=== PATIENT | male | born 1940 | race Caucasian/White ===

== ENCOUNTER 2017-03-03 10:45 | Emergency (ER) | payer OTHER ==
[~2017-03-03] VITALS: Ht 180.3 cm; Wt 90.5 kg
[~2017-03-03 10:45] MED LIST: CLR10 PO; OMEG10007 PO; PSEU30TA20 PO
[2017-03-03 10:48] VITALS: TEMP 36.5; Ht 180.3 cm; Wt 90.5 kg
[2017-03-03] MEDS ORDERED: RABIES IMMUNE GLOBULIN (HUMAN) 150 INTER.UNIT/ML 2 ML VIAL IM. ONE (11:30)
[2017-03-03] MEDS ORDERED: RABIES VACCINE (IMOVAX) HUMAN DIPL CELL 2.5 INTER.UNIT/ML SYR IM. ONE (11:30)
[2017-03-03 11:52] VITALS: BP 127/90; PULSE 79; O2SAT 97
--- NOTE | 2017-03-03 20:08 | EMERGENCY ROOM VISIT NOTE ---
History First contact with patient: 11:06 Chief Complaint: BITE Stated Complaint: NEED SHOT FOR RABIES History of Present Illness The patient is a 77 year old male who presents to the Emergency Room with complaints of a feral cat bite to his right index finger. The patient reports that he has been trying to "become friendly" with a cat. When he tried to pick it up Thursday to put it into a cage, it bit him. He has not seen the cat since the bite. The patient was seen at an urgent care center, and provided a prescription for Augmentin. He was instructed to come to the emergency department for the rabies immunization series. The patient denies any paresthesias or numbness of the finger, and has not noticed any developing redness. Review of Systems 10 system review was performed and was negative except for pertinent positives and negatives as indicated in history of present illness Past Medical/Surgical History Medical Problems: (1) Abdominal hernia (2) Esophageal Reflux (3) Hypertension Nos (4) Int Hemorrhoid W/O Compl (5) Pure Hypercholesterolem Surgical Problems: (1) History of bowel resection Family History No pertinent family history Social History Smoking Status: Never Smoker Marital Status: Housing Status: lives with significant other Occupation Status: retired Current/Historical Medications Scheduled Amlodipine (Norvasc), 5 MG PO QAM Cholecalciferol (Vitamin D3), 1 TAB PO QAM Citalopram Hydrobromide (Citalopram Hydrobromide), 1 TAB PO QAM Cyanocobalamin (Vitamin B12), 1 TAB PO QAM Gjmjkuyupki-Eakhuohfxgv-Uwo C- (Glucosamine Chondroitin), 2 CAP PO QAM Ibuprofen Tab (Advil), 4 TAB PO HS Losartan Potassium (Cozaar), 50 MG PO QAM Omeprazole (Omeprazole), 20 MG PO QAM Physical Exam Vital Signs Date Time Temp Pulse Resp B/P (MAP) Pulse Ox O2 Delivery O2 Flow Rate FiO2 03/03/17 11:52 79 16 127/90 97 Room Air 03/03/17 10:48 36.5 85 18 132/88 96 Room Air Pain Rating (0-10): 0 Physical Exam CONSTITUTIONAL: Healthy and well nourished. Alert and oriented X 3 with positive affect. HEENT: Normocephalic, atraumatic. Pupils equal, round and reactive. NECK: Full active range of motion without discomfort. MUSCULOSKELETAL: Examination of the right index finger shows several bite jaramillo to the dorsal middle phalanx region. The patient is able to flex and extend the finger without discomfort. No erythema, induration or drainage noted. No proximal lymphangitic streaking. Capillary refill is less than 2 seconds. INTEGUMENTARY: No rash or other significant dermatologic conditions noted. NEUROLOGIC: Right index finger is sensory intact. Medical Decision & Procedures Medications Administered Medications (Trade) Dose Ordered Sig/Reza Route Start Time Stop Time Status Last Admin Dose Admin Rabies Vaccine Human Diploid Cell (Imovax Rabies) 2.5 interunit ONCE ONCE IM. 03/03/17 11:30 03/03/17 11:31 DC 03/03/17 11:47 2.5 INTERUNIT Rabies Immune Globulin (Imogam Rabies Inj) 1,800 interunit ONCE ONCE IM. 03/03/17 11:30 03/03/17 11:31 DC 03/03/17 11:48 1,800 INTERUNIT ED Course Patient history and physical exam were performed. Nurse's notes were reviewed. Vital signs were reviewed and normal. The patient was administered Imovax and HRIG 20 units per kilogram without any adverse reaction. The patient will continue with his Augmentin antibiotics, and will return to the emergency department on days 3, 7 and 14 for his subsequent Imovax immunizations. Was instructed to return sooner with any further wound concerns. The patient was happy with plan of care, and denied any pain at the time of discharge. Medical Decision Medication Reconcilliation Current Medication List: was personally reviewed by me Blood Pressure Screening Patient's blood pressure: Normal blood pressure Impression Primary Impression: Cat bite of index finger Additional Impression: Rabies, need for prophylactic vaccination against Departure Information Dispostion Home / Self-Care Condition GOOD Forms HOME CARE DOCUMENTATION FORM, IMPORTANT VISIT INFORMATION Patient Instructions [facility] Additional Instructions Return on the following dates for your immunizations: 03/06 Problem Qualifiers Primary Impression: Cat bite of index finger Encounter type: initial encounter Qualified Codes: S61.258A - Open bite of other finger without damage to nail, initial encounter; W55.01XA - Bitten by cat , initial encounter
[2017-03-17] MEDS ORDERED: CITA10TA4 PO (09:37)
[2017-03-17] MEDS ORDERED: CYAN100020 PO (09:37)
[2017-03-17] MEDS ORDERED: LOSA50TA6 PO (09:37)
[2017-03-17] MEDS ORDERED: IBUP-103 PO (09:37)
[2017-03-17] MEDS ORDERED: AMLO-110 PO (09:37)
[2017-03-17] MEDS ORDERED: CHOL1000 PO (09:37)
[2017-03-17] MEDS ORDERED: GLUC1CAP35 PO (09:37)
== END 2017-03-03 12:33 | disposition home or self-care (01) ==
LOC: C.EDB 10:46 → C.EDD 12:33
DX: S60.478A Other superficial bite of other finger, initial encounter (principal); W55.01XA Bitten by cat, initial encounter; K21.9 Gastro-esophageal reflux disease without esophagitis; I10 Essential (primary) hypertension; E78.00 Pure hypercholesterolemia, unspecified; Z20.3 Contact with and (suspected) exposure to rabies; Z23 Encounter for immunization

== ENCOUNTER 2017-03-06 10:01 | Emergency (ER) | payer OTHER ==
[~2017-03-06] VITALS: Ht 180.3 cm; Wt 90.6 kg
[2017-03-06 10:06] VITALS: Ht 180.3 cm; Wt 90.6 kg
[2017-03-06] MEDS ORDERED: AMPICILLIN/SULBACTAM SOD INJ 3,000 MG in SODIUM CHLORIDE 0.9% 100ML 100 ML IV ONE (10:30)
[2017-03-06] MEDS ORDERED: RABIES VACCINE (IMOVAX) HUMAN DIPL CELL 2.5 INTER.UNIT/ML SYR IM. ONE (10:30)
[2017-03-06 10:55] LABS: BASO % 0.4 %; BASO ABS # 0.03 K/uL (0-0.2); COMPLETE YES; EOS % 3.1 %; HEMATOCRIT 38.5 % (42-52); IG% 0.1 %; LYMPH % 26.8 %; MEAN CORPUSCULAR HEMOGLOBIN 31.6 pg (25-34); MEAN PLATELET VOLUME 9.4 fL (7.4-10.4); MONO % 9.7 %; NEUT % 59.9 %; PLATELET COUNT 253 K/uL (130-400); RED BLOOD COUNT 4.14 M/uL (4.7-6.1); WHITE BLOOD COUNT 7.85 K/uL (4.8-10.8)
--- NOTE | 2017-03-06 11:16 | DIAGNOSTIC IMAGING REPORT ---
RIGHT FINGER(S) MIN 2 VIEWS ROUTINE CLINICAL HISTORY: RIGHT 2ND FINGER, CAT BITE, INFECTION Right pain. Edema. Abnormal bite. COMPARISON: None. DISCUSSION: Moderate degenerative change of the interphalangeal joints. Generalized soft tissue edema. No abnormal periosteal reaction. No cortical defects. No bony destructive process. IMPRESSION: Considerable soft tissue edema. No acute bony abnormality. The above report was generated using voice recognition software. It may contain grammatical, syntax or spelling errors. Electronically signed by: Santiago Martínez M.D. 03/06/2017 11:14 AM Dictated Date/Time: 03/06/2017 11:13 AM
[2017-03-06 11:21] LABS: BUN/CREATININE RATIO 12.7 (10-20); C-REACTIVE PROTEIN 0.95 mg/dl (0-0.29); CREATININE 1.1 mg/dl (0.60-1.40); POTASSIUM 4.3 mmol/L (3.5-5.1)
[2017-03-06] MEDS ORDERED: AMOX875T PO (11:21)
--- NOTE | 2017-03-06 12:37 | EMERGENCY ROOM VISIT NOTE ---
ED Visit Note First contact with patient: 10:10 CHIEF COMPLAINT: Infected cat bite of the right second finger, repeat rabies visit HISTORY OF PRESENT ILLNESS: Patient is a [id number] 77-year-old white male who presents to emergency department for evaluation of a Bite to the right second finger, and for a follow-up rabies visit. The patient was bitten by a feral cat one week ago. He sustained multiple bites to the right second finger. He was seen at an urgent care center on Friday 03/02 and started on Augmentin. He was seen here in the emergency Department 03/03 for initiation of post exposure rabies prophylaxis. Patient has been on antibiotics for 4 days, reports that his finger is worsening. He primarily complains of pain over the middle phalanx where the deepest bite was sustained. The finger is still swollen and throbs. He has pain when he tries to flex the finger. He has not had any fevers. He denies any drainage or discharge from the area. He tolerated the rabies vaccinations from Thursday without any difficulty. He rates his discomfort a 01/03. REVIEW OF SYSTEMS: Review of systems as per HPI. All other systems reviewed were negative. 10 systems reviewed. PMH: Electronic medical records are reviewed and summarized as above/below. See Problem List. Tetanus is current. SOCIAL HISTORY: Patient living at home with his . He is retired. PHYSICAL EXAM: Vital Signs: Reviewed Nurse's notes. CONSTITUTIONAL: Patient is a pleasant, well-appearing 77-year-old white male who is awake and alert and in no acute distress. Examination of the right hand show multiple small punctures and scratches on the right second finger, which are scabbed over. The finger is circumferentially swollen, tender to palpation over the proximal phalanx, primarily on the palmar aspect of the finger. He does not have any pain extending into the palm of the hand. He can extend fully, flexion is limited by discomfort and soft tissue swelling. There is no fluctuance or overt cellulitic changes. No abscess suspected. No lymphangitic streaking. EMERGENCY DEPARTMENT COURSE: The patient was seen and assessed as above. His primary Emergency Department record was reviewed. He has been on antibiotics for 4 days, does not feel like his symptoms are improving. IV lock was initiated and the patient was given Unasyn 3 g IV. CBC did not demonstrate a leukocytosis. Inflammatory markers are minimally elevated. Electrolytes are normal. X-rays noted soft tissue swelling without bony abnormality. He was given his scheduled dose of Imovax IM. The patient was reassessed. He has expected pain and swelling from a cat bite to the right second finger. He is on appropriate antibiotic coverage. They he has some residual pain and swelling, however does not have any physical exam findings to suspect flexor tenosynovitis. I do not suspect drainable abscess or osteomyelitis. He was encouraged to continue the antibiotics. He declined pain medication. He was encouraged to follow-up with his primary care provider next week for recheck, and to follow the previously outlined post exposure rabies prophylaxis course. The patient was discharged home in good condition. Medication reconciliation: I attest that I have personally reviewed the patient' s current medication list. Blood pressure screening : Patient was found to have normal blood pressure on screening and does not require follow-up. RIGHT FINGER(S) MIN 2 VIEWS ROUTINE CLINICAL HISTORY: RIGHT 2ND FINGER, CAT BITE, INFECTION Right pain. Edema. Abnormal bite. COMPARISON: None. DISCUSSION: Moderate degenerative change of the interphalangeal joints. Generalized soft tissue edema. No abnormal periosteal reaction. No cortical defects. No bony destructive process. IMPRESSION: Considerable soft tissue edema. No acute bony abnormality. Problem List Medical Problems: (1) Abdominal hernia Status: Chronic (2) Abdominal pain Status: Resolved (3) Cat bite of index finger Status: Resolved (4) Esophageal Reflux Status: Chronic (5) Hypertension Nos Status: Chronic (6) Int Hemorrhoid W/O Compl Status: Resolved (7) Pure Hypercholesterolem Status: Chronic (8) Rabies, need for prophylactic vaccination against Status: Resolved Surgical Problems: (1) History of bowel resection Status: Resolved (2) Hx of cholecystectomy Status: Resolved Current/Historical Medications Scheduled Amlodipine (Norvasc), 5 MG PO QAM Amoxicillin & Pot Clavulanate (Augmentin 875-125 mg), 1 TAB PO BID Atorvastatin (Lipitor), 5 MG PO QAM Cholecalciferol (Vitamin D3), 1 TAB PO QAM Citalopram Hydrobromide (Citalopram Hydrobromide), 5 MG PO QAM Cyanocobalamin (Vitamin B12), 1 TAB PO QAM Kimwgjobgoy-Prgrbrasvmz-Kxj C- (Glucosamine Chondroitin), 2 CAP PO QAM Ibuprofen Tab (Advil), 4 TAB PO HS Losartan Potassium (Cozaar), 50 MG PO QAM Omeprazole (Omeprazole), 20 MG PO QAM Allergies Coded Allergies: No Known Allergies (Unverified , 03/06/17) Vital Signs Date Time Temp Pulse Resp B/P (MAP) Pulse Ox O2 Delivery O2 Flow Rate FiO2 03/06/17 12:46 36.4 66 18 126/84 96 03/06/17 11:30 67 20 136/89 94 Room Air 03/06/17 10:06 36.4 83 16 127/88 96 Room Air Laboratory Results 03/06/17 10:45 Red Blood Count 4.14, Mean Corpuscular Volume 93.0, Mean Corpuscular Hemoglobin 31.6, Mean Corpuscular Hemoglobin Concent 34.0, Mean Platelet Volume 9.4, Neutrophils (%) (Auto) 59.9, Lymphocytes (%) (Auto) 26.8, Monocytes (%) (Auto) 9.7, Eosinophils (%) (Auto) 3.1, Basophils (%) (Auto) 0.4, Neutrophils # (Auto) 4.71, Lymphocytes # (Auto) 2.10, Monocytes # (Auto) 0.76, Eosinophils # (Auto) 0.24, Basophils # (Auto) 0.03 03/06/17 10:45 Test 03/06/17 10:45 White Blood Count 7.85 K/uL (4.8-10.8) Red Blood Count 4.14 M/uL (4.7-6.1) Hemoglobin 13.1 g/dL (14.0-18.0) Hematocrit 38.5 % (42-52) Mean Corpuscular Volume 93.0 fL (80-100) Mean Corpuscular Hemoglobin 31.6 pg (25-34) Mean Corpuscular Hemoglobin Concent 34.0 g/dl (32-36) Platelet Count 253 K/uL (130-400) Mean Platelet Volume 9.4 fL (7.4-10.4) Neutrophils (%) (Auto) 59.9 % Lymphocytes (%) (Auto) 26.8 % Monocytes (%) (Auto) 9.7 % Eosinophils (%) (Auto) 3.1 % Basophils (%) (Auto) 0.4 % Neutrophils # (Auto) 4.71 K/uL (1.4-6.5) Lymphocytes # (Auto) 2.10 K/uL (1.2-3.4) Monocytes # (Auto) 0.76 K/uL (0.11-0.59) Eosinophils # (Auto) 0.24 K/uL (0-0.5) Basophils # (Auto) 0.03 K/uL (0-0.2) RDW Standard Deviation 42.7 fL (36.4-46.3) RDW Coefficient of Variation 12.7 % (11.5-14.5) Immature Granulocyte % (Auto) 0.1 % Immature Granulocyte # (Auto) 0.01 K/uL (0.00-0.02) Erythrocyte Sedimentation Rate 39 mm/hr (0-14) Anion Gap 6.0 mmol/L (3-11) Est Creatinine Clear Calc Drug Dose 66.8 ml/min Estimated GFR () 75.7 Estimated GFR (Non- 65.3 BUN/Creatinine Ratio 12.7 (10-20) Calcium Level 9.0 mg/dl (8.5-10.1) C-Reactive Protein 0.95 mg/dl (0-0.29) Medications Administered Medications (Trade) Dose Ordered Sig/Reza Route Start Time Stop Time Status Last Admin Dose Admin Rabies Vaccine Human Diploid Cell (Imovax Rabies) 2.5 interunit ONCE ONCE IM. 03/06/17 10:30 03/06/17 10:31 DC 03/06/17 10:30 2.5 INTERUNIT Ampicillin Sodium/ Sulbactam Sodium 3000 mg/Sodium Chloride 108 ml @ 200 mls/hr ONE ONCE IV 03/06/17 10:30 03/06/17 11:02 DC 03/06/17 10:30 200 MLS/HR Departure Information Impression Primary Impression: Cat bite of index finger Referrals Milana Renee (PCP) Patient Instructions My [facility] Additional Instructions Continue Augmentin as prescribed. Ibuprofen(Motrin, Advil) may be used for fever or pain. Use 600mg every six hours as needed. Take with food. Avoid using more than 2400mg in a 24 hour period. Do not use 2400mg per day for more than three consecutive days without physician direction. Prolonged inappropriate use can lead to stomach upset or ulcers. (AND/OR) Acetaminophen(Tylenol) may be used for fever or pain. Use 1000mg every six hours as needed. Avoid using more than 3000mg in a 24 hour period. Return to the emergency department at any point for increasing pain, redness or swelling, fevers, red streaking traveling up the arm or any worsening symptoms. Follow-up with your primary care provider or with orthopedic hand surgery if your symptoms are not improved by Thursday. Problem Qualifiers Primary Impression: Cat bite of index finger Encounter type: subsequent encounter Qualified Codes: S61.258D - Open bite of other finger without damage to nail, subsequent encounter; W55.01XD - Bitten by cat, subsequent encounter
--- NOTE | 2017-03-06 12:43 | EMERGENCY ROOM VISIT NOTE ---
ED Visit Note First contact with patient: 10:10 77-year-old male was swelling with right index finger status post animal bite. The patient has been on antibiotics. The patient was fully evaluated by Daniela Rudd PA-C. Please see her note. I also independently evaluated the patient. The patient was given additional antibiotics here and will go home on prescription antibiotics.
[2017-03-06 12:46] VITALS: BP 126/84; PULSE 66; TEMP 36.4; O2SAT 96
[2017-03-17] MEDS ORDERED: IBUP-103 PO (09:37)
[2017-03-17] MEDS ORDERED: CITA10TA4 PO (09:37)
[2017-03-17] MEDS ORDERED: AMLO-110 PO (09:37)
[2017-03-17] MEDS ORDERED: GLUC1CAP35 PO (09:37)
[2017-03-17] MEDS ORDERED: CHOL1000 PO (09:37)
[2017-03-17] MEDS ORDERED: CYAN100020 PO (09:37)
[2017-03-17] MEDS ORDERED: LOSA50TA6 PO (09:37)
== END 2017-03-06 12:47 | disposition home or self-care (01) ==
LOC: C.EDB 10:06 → C.EDA 12:47
DX: Z23 Encounter for immunization (principal); Z20.3 Contact with and (suspected) exposure to rabies; W55.01XA Bitten by cat, initial encounter; I10 Essential (primary) hypertension; K21.9 Gastro-esophageal reflux disease without esophagitis; E78.00 Pure hypercholesterolemia, unspecified; Z90.49 Acquired absence of other specified parts of digestive tract

== ENCOUNTER 2017-03-10 12:14 | Emergency (ER) | payer OTHER ==
[~2017-03-10] VITALS: Ht 180.3 cm; Wt 90.8 kg
[~2017-03-10 12:14] MED LIST changes: +AMOX875T PO; -CLR10 PO; -OMEG10007 PO; -PSEU30TA20 PO
[2017-03-10 12:23] VITALS: TEMP 36.7; Ht 180.3 cm; Wt 90.8 kg
[2017-03-10] MEDS ORDERED: RABIES VACCINE (IMOVAX) HUMAN DIPL CELL 2.5 INTER.UNIT/ML SYR IM. ONE (12:45)
--- NOTE | 2017-03-10 12:45 | EMERGENCY ROOM VISIT NOTE ---
ED Visit Note First contact with patient: 12:27 Chief Complaint: Rabies Return Visit History of Present Illness: This patient is a 77 year old male who presents to the Emergency Department for their via private vehicle for his Rabies Vaccination Injections. The patient reports that they had no reaction to previous injection. Patient denies the development of any fevers, chills, sweats, or URI symptoms. Medications: Unchanged from previous visit. Allergies: none PMH: Unchanged from previous visit. SHx: no pertinent ROS: All pertinent positive and negative review of systems are appropriately documented in the History of Present Illness. Physical Exam: VITAL SIGNS - Vital signs and Nursing Notes were reviewed. GENERAL - 77 year old male, well-developed, well-nourished, and in no acute distress. SKIN - Without rashes or lesions. ED Course: Previous ED visit note was reviewed by myself prior to patient evaluation. Patient reports his reaction to the previous injection(s). Patient received 2.5 of IU intramuscularly. Patient was observed in the Emergency Department for greater than 20 minutes prior to discharge without signs of reaction. Patient was educated on worrisome symptoms for return visit to the Emergency Department. Patient discharged to home with the intent for follow-up in the Emergency Department as scheduled for the remainder of their injections. Problem List Medical Problems: (1) Abdominal hernia Status: Chronic (2) Abdominal pain Status: Resolved (3) Cat bite of index finger Status: Resolved (4) Esophageal Reflux Status: Chronic (5) Hypertension Nos Status: Chronic (6) Int Hemorrhoid W/O Compl Status: Resolved (7) Pure Hypercholesterolem Status: Chronic (8) Rabies, need for prophylactic vaccination against Status: Resolved Surgical Problems: (1) History of bowel resection Status: Resolved (2) Hx of cholecystectomy Status: Resolved Current/Historical Medications Scheduled Amlodipine (Norvasc), 5 MG PO QAM Amoxicillin & Pot Clavulanate (Augmentin 875-125 mg), 1 TAB PO BID Atorvastatin (Lipitor), 5 MG PO QAM Cholecalciferol (Vitamin D3), 1 TAB PO QAM Citalopram Hydrobromide (Citalopram Hydrobromide), 5 MG PO QAM Cyanocobalamin (Vitamin B12), 1 TAB PO QAM Naofsoqmarh-Bzawwtwmpjx-Uzw C- (Glucosamine Chondroitin), 2 CAP PO QAM Ibuprofen Tab (Advil), 4 TAB PO HS Losartan Potassium (Cozaar), 50 MG PO QAM Omeprazole (Omeprazole), 20 MG PO QAM Allergies Coded Allergies: No Known Allergies (Unverified , 03/06/17) Vital Signs Date Time Temp Pulse Resp B/P (MAP) Pulse Ox O2 Delivery O2 Flow Rate FiO2 03/10/17 12:55 76 18 134/85 95 03/10/17 12:23 36.7 76 18 134/85 95 Room Air Medications Administered Medications (Trade) Dose Ordered Sig/Reza Route Start Time Stop Time Status Last Admin Dose Admin Rabies Vaccine Human Diploid Cell (Imovax Rabies) 2.5 interunit ONCE ONCE IM. 03/10/17 12:45 03/10/17 12:46 DC 03/10/17 12:46 2.5 INTERUNIT Departure Information Impression Primary Impression: Rabies, need for prophylactic vaccination against Dispostion Home / Self-Care Condition GOOD Referrals Milana Renee (PCP) Patient Instructions My [facility] Additional Instructions Discharge Instructions: You were seen in the Emergency Department today for your Rabies Prophylaxis Injection. You should continue to follow the Discharge Instructions outlined for you in your initial Emergency Department visit. If the finger which show worsening signs of infection please return immediately. Return to the emergency department if your symptoms worsen despite treatment course outlined above.
[2017-03-10 12:55] VITALS: BP 134/85; PULSE 76; O2SAT 95
[2017-03-17] MEDS ORDERED: IBUP-103 PO (09:37)
[2017-03-17] MEDS ORDERED: GLUC1CAP35 PO (09:37)
[2017-03-17] MEDS ORDERED: CYAN100020 PO (09:37)
[2017-03-17] MEDS ORDERED: LOSA50TA6 PO (09:37)
[2017-03-17] MEDS ORDERED: CHOL1000 PO (09:37)
[2017-03-17] MEDS ORDERED: CITA10TA4 PO (09:37)
[2017-03-17] MEDS ORDERED: AMLO-110 PO (09:37)
== END 2017-03-10 12:56 | disposition home or self-care (01) ==
LOC: C.EDB 12:15 → C.EDD 12:56
DX: Z20.3 Contact with and (suspected) exposure to rabies (principal); Z23 Encounter for immunization; K21.9 Gastro-esophageal reflux disease without esophagitis; I10 Essential (primary) hypertension; E78.00 Pure hypercholesterolemia, unspecified; Z79.899 Other long term (current) drug therapy

== ENCOUNTER 2017-03-17 09:38 | Emergency (ER) | payer OTHER ==
[~2017-03-17] VITALS: Ht 180.3 cm; Wt 90.9 kg
[~2017-03-17 09:38] MED LIST changes: +AMLO-110 PO; +CHOL1000 PO; +CITA10TA4 PO; +CYAN100020 PO; +GLUC1CAP35 PO; +IBUP-103 PO; +LOSA50TA6 PO
[2017-03-17] MEDS ORDERED: OMEP20TA PO (09:43)
[2017-03-17 09:50] VITALS: TEMP 36.6; Ht 180.3 cm; Wt 90.9 kg
[2017-03-17] MEDS ORDERED: RABIES VACCINE (IMOVAX) HUMAN DIPL CELL 2.5 INTER.UNIT/ML SYR IM. ONE (09:55)
--- NOTE | 2017-03-17 10:11 | EMERGENCY ROOM VISIT NOTE ---
ED Visit Note First contact with patient: 10:01 Chief Complaint: Rabies Return Visit History of Present Illness: This patient is a 77-year-old male who presents to the Emergency Department via private vehicle for their Rabies Vaccination Injections. The patient reports that they had no reaction to previous injection. Patient denies the development of any fevers, chills, sweats, or URI symptoms. Medications: Unchanged from previous visit. Allergies: None PMH: Unchanged from previous visit. SHx: Unchanged. ROS: All pertinent positive and negative review of systems are appropriately documented in the History of Present Illness. Physical Exam: VITAL SIGNS - Vital signs and Nursing Notes were reviewed. GENERAL - 77 year old male, well-developed, well-nourished, and in no acute distress. SKIN - Without rashes or lesions. ED Course: Previous ED visit note was reviewed by myself prior to patient evaluation. Patient reports no reaction to the previous injection(s). Patient received 2.5IU of imovax intramuscularly. Patient was observed in the Emergency Department for greater than 20 minutes prior to discharge without signs of reaction. Patient was educated on worrisome symptoms for return visit to the Emergency Department. Patient discharged to home with the intent for follow-up in the Emergency Department as scheduled for the remainder of their injections. Problem List Medical Problems: (1) Abdominal hernia Status: Chronic (2) Abdominal pain Status: Resolved (3) Cat bite of index finger Status: Resolved (4) Esophageal Reflux Status: Chronic (5) Hypertension Nos Status: Chronic (6) Int Hemorrhoid W/O Compl Status: Resolved (7) Pure Hypercholesterolem Status: Chronic (8) Rabies, need for prophylactic vaccination against Status: Resolved Surgical Problems: (1) History of bowel resection Status: Resolved (2) Hx of cholecystectomy Status: Resolved Current/Historical Medications Scheduled Amlodipine (Norvasc), 5 MG PO QAM Atorvastatin (Lipitor), 5 MG PO QAM Cholecalciferol (Vitamin D3), 1 TAB PO QAM Citalopram Hydrobromide (Citalopram Hydrobromide), 5 MG PO QAM Cyanocobalamin (Vitamin B12), 1 TAB PO QAM Qqcbrrfeiqb-Vmoloquwmrq-Jfr C- (Glucosamine Chondroitin), 2 CAP PO QAM Ibuprofen Tab (Advil), 4 TAB PO HS Losartan Potassium (Cozaar), 50 MG PO QAM Omeprazole (Omeprazole), 20 MG PO QAM Allergies Coded Allergies: No Known Allergies (Unverified , 03/06/17) Vital Signs Date Time Temp Pulse Resp B/P (MAP) Pulse Ox O2 Delivery O2 Flow Rate FiO2 03/17/17 10:26 75 16 118/62 98 03/17/17 09:50 36.6 78 18 124/69 97 Room Air Medications Administered Medications (Trade) Dose Ordered Sig/Reza Route Start Time Stop Time Status Last Admin Dose Admin Rabies Vaccine Human Diploid Cell (Imovax Rabies) 2.5 interunit STK-MED ONCE IM. 03/17/17 09:55 03/17/17 09:56 DC 03/17/17 10:00 2.5 INTERUNIT Departure Information Impression Primary Impression: Rabies, need for prophylactic vaccination against Dispostion Home / Self-Care Condition GOOD Referrals Milana Renee (PCP) Patient Instructions My [facility] Additional Instructions You were seen in the Emergency Department today for your Rabies Prophylaxis Injection. Congratulations on completing the series. Return to the emergency department if your symptoms worsen despite treatment course outlined above. Please return the emergency department with any new/concerning symptoms.
[2017-03-17 10:26] VITALS: BP 118/62; PULSE 75; O2SAT 98
[2017-03-17] MEDS ORDERED: ATOR10TA88 PO (11:22)
== END 2017-03-17 10:27 | disposition home or self-care (01) ==
LOC: C.EDB 09:39
DX: Z23 Encounter for immunization (principal); Z20.3 Contact with and (suspected) exposure to rabies; K46.9 Unspecified abdominal hernia without obstruction or gangrene; K21.9 Gastro-esophageal reflux disease without esophagitis; I10 Essential (primary) hypertension; E78.00 Pure hypercholesterolemia, unspecified

== ENCOUNTER → 2017-08-05 | Day surgery (SDC) | payer OTHER ==
[2017-08-03 12:22] VITALS: Ht 180.3 cm; Wt 88.6 kg
[~2017-08-05] VITALS: Ht 180.3 cm; Wt 88.6 kg
[~2017-08-05] MED LIST changes: -AMOX875T PO; +ATOR10TA82 PO; +LIDOCAINE HCL 2% 2 ML VIAL (20MG/ML) ONE; +OMEP20TA PO; +PROPOFOL IV EMULSION 10 MG/ML 20 ML VIAL IV ONE; +SODIUM CHLORIDE 0.9% 500ML 500 ML IV ONE
--- NOTE | 2017-08-05 08:39 | Endo History and Physical ---
History & Physical Date of Service: Aug 05, 2017. Chief Complaint: Sceening colonoscopy Referring Physician: Dr. Renee History of Present Illness Average risk screening colonoscopy. Past Surgical History Hx Cardiac Surgery: No Hx Internal Defibrillator: No Hx Pacemaker: No Hx Abdominal Surgery: Yes (EXPLORATORY LAP WITH COLOSTOMY AND ILEOSTOMY FOLLOWED BY REVERSALS) Hx of Implantable Prosthesis: No Hx Post-Op Nausea and Vomiting: No Hx Cancer Surgery: No Hx Thoracic Surgery: No Hx Orthopedic: No Hx Urinary Tract Surgery: No Family History None Social History Smoking Status: Never Smoker Hx Substance Use: No Hx Alcohol Use: No Allergies Coded Allergies: No Known Allergies (Unverified , 08/05/17) Current Medications Reported Home Medications Medications Dose Route/Sig Max Daily Dose Days Date Category Lipitor (Atorvastatin Calcium) 10 Mg Tab 0.5 Tab PO QAM 03/06/17 Reported Advil (Ibuprofen) 200 Mg Tab 4 Tab PO HS 12/05/15 Reported Glucosamine Chondroitin (Jsweobcqpyc-Joqulyptkfe-Hur C-) 1 Cap Cap 2 Cap PO QAM 12/05/15 Reported Vitamin D3 (Cholecalciferol) 1,000 Unit Tab 1 Tab PO QAM 12/05/15 Reported Vitamin B12 (Cyanocobalamin) 1,000 Mcg Tab 1 Tab PO QAM 12/05/15 Reported Norvasc (Amlodipine Besylate) 5 Mg Tab 5 Mg PO QAM 12/05/15 Reported Citalopram Hydrobromide 10 Mg Tab 0.5 Tab PO QAM 12/05/15 Reported Cozaar (Losartan Potassium) 50 Mg Tab 50 Mg PO QAM 12/05/15 Reported Omeprazole 20 Mg Tab 20 Mg PO QAM 11/21/14 Reported Vital Signs Weight (Kilograms): 88.64 Height (Feet): 5 Height (Inches): 11 Physical Exam General Appearance: WD/WN, no apparent distress Respiratory/Chest: Auscultation: breath sounds normal, no wheezing Cardiovascular: Heart Auscultation: RRR, no murmurs Assessment and Plan Colonoscopy today.
[2017-08-05 08:46] VITALS: TEMP 36.6
--- NOTE | 2017-08-05 09:27 | GI REPORT ---
Procedure Date: 08/05/2017 8:42 AM Procedure: Colonoscopy Indications: Screening for colorectal malignant neoplasm Patient Profile: This is a 77 year old male referred from the [place] for screening colonoscopy. He had a right hemicolectomy with small bowel resection for trauma in 2010. Medicines: Monitored Anesthesia Care Complications: No immediate complications. Estimated blood loss: None. Estimated Blood Loss: Estimated blood loss: none. Procedure: Pre-Anesthesia Assessment: - Prior to the procedure, a History and Physical was performed, and patient medications, allergies and sensitivities were reviewed. The patient's tolerance of previous anesthesia was reviewed. - ASA Grade Assessment: III - A patient with severe systemic disease. After I obtained informed consent, the scope was passed under direct vision. Throughout the procedure, the patient's blood pressure, pulse, and oxygen saturations were monitored continuously. The scope was introduced through the anus and advanced to the ileocolonic anastomosis. The colonoscopy was performed with ease. The patient tolerated the procedure well. The quality of the bowel preparation was excellent. The bowel preparation used was split dose MIralax. Findings: There was evidence of a prior end-to-end ileo-colonic anastomosis in the proximal transverse colon. This was patent and was characterized by healthy appearing mucosa. The anastomosis was traversed. Impression: - Patent end-to-end ileo-colonic anastomosis, characterized by healthy appearing mucosa. - No specimens collected. - The colon was otherwise normal to the cam-terminal ileum with retroflexed views of the transverse colon and the rectum. Recommendation: - No repeat colonoscopy due to age and the absence of advanced adenomas. - Discharge patient to home (with escort). Jefry Delarosa M.D. Jefry Delarosa MD 08/05/2017 9:27:30 AM This report has been signed electronically. Note Initiated On: 08/05/2017 8:42 AM I attest to the content of the Intraoperative Record and orders documented therein, exceptions below
--- NOTE | 2017-08-05 09:28 | Discharge Instructions ---
Endoscopy Patient Instructions Date / Procedure(s) Performed Aug 05, 2017. Colonoscopy Allergy Information Coded Allergies: No Known Allergies (Unverified , 08/05/17) Discharge Date / Findings Aug 05, 2017. Normal ileocolic anastomosis, no polyps. Medication Instructions Restart Stopped Medication(s): Restart all medications today Provider Instructions Activity Restrictions - No exercising or heavy lifting for 24 hours. - Do not drink alcohol the day of the procedure. - Do not drive a car or operate machinery until the day after the procedure. - Do not make any important decisions or sign important papers in 24 hours after the procedure. Following Day: - Return to full activity which may include returning to work/school. Diet Start your diet with liquids and light foods (jello, soup, juice, toast). Then eat your usual diet if not nauseated. Treatment For Common After Affects For mild abdominal pain, bloating, or excessive gas: - Rest - Eat lightly - Lie on right side Follow-Up Information Follow-up with Milana Renee as scheduled Anesthesia Information What You Should Know You have had a procedure that required some medicine to reduce anxiety and discomfort. This treatment is called moderate sedation. After receiving the treatment, you may be sleepy, but you will be able to breathe on your own. The effects of the treatment may last for several hours. Follow these instructions along with Activity/Diet recommendations noted above: * Do NOT do anything where dizziness or clumsiness would be dangerous. * Rest quietly at home today, then you can be up and about tomorrow. * Have a responsible person stay with you the rest of today. * You may have had an I.V. today. If so, you may take the dressing off later today. Recommendations Call your doctor if: * Trouble breathing * Continuous vomiting for more than 24 hours * Temperature above 101 degrees * Severe abdominal pain or bloating * Pain not relieved by pain medicine ordered * There is increased drainage or redness from any incision * A large amount of rectal bleeding greater than 2-3 tablespoons. (If you had a polyp/s removed or have hemorrhoids, a small amount of blood - from the rectum is to be expected.) * You have any unanswered questions or concerns. IN THE EVENT OF A SERIOUS EMERGENCY, GO TO THE NEAREST EMERGENCY ROOM Your discharge instructions were prepared by provider Jefry Delarosa. Patient Instructions Signature Page Israel Naranjo Patient (or Guardian) Signature/Date: I have read and understand the instructions given to me by my caregivers. Caregiver/RN/Doctor Signature/Date: The above-named patient and/or guardian has received patient instructions on this date. + Original Patient Signature Page (only) stays with chart. Please make copy for patient.
[2017-08-05 09:56] VITALS: BP 120/81; PULSE 64; O2SAT 96
--- NOTE | 2017-08-05 10:32 | Anesthesiology Progress Note ---
Anesthesia Post Op Note Date & Time Aug 05, 2017 at 10:32 Vital Signs Pain Intensity: 0 Vital Signs Past 12 Hours Date Time Temp Pulse Resp B/P (MAP) Pulse Ox O2 Delivery O2 Flow Rate FiO2 08/05/17 09:56 64 20 120/81 (94) 96 Room Air 08/05/17 09:41 67 20 129/93 (105) 96 Room Air 08/05/17 09:26 72 20 106/75 (85) 95 Room Air 08/05/17 08:46 36.6 79 20 121/89 (100) 96 Room Air Notes Mental Status: alert / awake / arousable, participated in evaluation Pt Amnestic to Procedure: Yes Nausea / Vomiting: adequately controlled Pain: adequately controlled Airway Patency, RR, SpO2: stable & adequate BP & HR: stable & adequate Hydration State: stable & adequate Anesthetic Complications: no major complications apparent
== END | disposition home or self-care (01) ==
LOC: C.GI 08:26
PROVIDERS: ATTEND Internal Medicine Gastroenterology
DX: Z12.11 Encounter for screening for malignant neoplasm of colon (principal); Z93.3 Colostomy status; Z98.890 Other specified postprocedural states; F41.9 Anxiety disorder, unspecified

== ENCOUNTER 2022-06-25 11:28 | Inpatient (IN) ==
[2022-06-25] MEDS ORDERED: SODIUM CHLORIDE 0.9% 500 ML IV ONE (11:43)
[2022-06-25] MEDS ORDERED: ALBUT/IPRATROP 3MG/0.5MG NEB 3 ML VIAL NEB STA (11:45)
[2022-06-25] MEDS ORDERED: dexAMETHasone**PF** 10 MG/ML VIAL IV ONE (11:45)
[2022-06-25] MEDS ORDERED: guaiFENesin 600 MG TABCR PO STA (11:45)
--- NOTE | 2022-06-25 12:04 | XRay Report ---
XR chest 1V portable CLINICAL HISTORY: sob TECHNIQUE: Single frontal radiograph of the chest was obtained. Comparison: Comparison is made to chest radiograph 10/01/[address] abdomen pelvis 11/21/2014 FINDINGS: No lines and tubes are seen. The cardiomediastinal silhouette is normal. Reticular interstitial opaci ties are seen. No evidence of pleural effusion or pneumothorax. Degenerative changes are seen in the bilateral shoulder joints. IMPRESSION: No airspace disease is seen. 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 ACT 112: Negative or not required by law. Electronically signed by: Michael Samuels M.D. 06/25/2022 12:03 PM
[2022-06-25 12:09] LABS: Basophils # (auto) 0.03 K/uL (0-0.2); Basophils % (auto) 0.4 %; Eosinophils # (auto) 0.02 K/uL (0-0.50); Eosinophils % (auto) 0.3 %; Immature Granulocytes # (auto) 0.02 K/uL (0.00-0.02); Immature Granulocytes % (auto) 0.3 %; Lymphocytes # (auto) 1.15 K/uL (1.2-3.4); Lymphocytes % (auto) 16.3 %; Mean Corpuscular Hemoglobin 32.3 pg (25.0-34.0); Mean Corpuscular Volume 92.2 fL (80.0-100.0); Mean Platelet Volume 9.8 fL (9.4-12.4); Monocytes # (auto) 1.04 K/uL (0.24-0.82); Monocytes % (auto) 14.8 %; Neutrophils # (auto) 4.79 K/uL (1.4-6.5); Neutrophils % (auto) 67.9 %; Platelet Count 209 K/uL (130-400); RDW Coefficient of Variation 12.2 % (11.5-14.5); RDW Standard Deviation 41.5 fL (36.4-46.3); Red Blood Count 4.34 M/uL (4.63-6.08); White Blood Count 7.05 K/ul (4.8-10.8)
[2022-06-25 12:30] LABS: Albumin Globulin Ratio 1.2 (0.9-2); Albumin Level 4.7 gm/dl (3.4-5.0); BUN Creatinine Ratio 11.8 (10-20); Bilirubin,Total 0.9 mg/dl (0.2-1.0); Calcium 9.2 mg/dl (8.5-10.1); Creatinine Clr Calc Pharmacy 53.5 ml/min; Est GFR (African American) 61.4 ml/min; Globulin 3.8 gm/dl (2.5-4.0); Magnesium 1.6 mg/dl (1.7-2.4); Phosphorus 3.5 mg/dl (2.5-4.9); Potassium 3.4 mmol/L (3.5-5.1); Total Protein 8.5 gm/dl (6.0-8.3)
[2022-06-25 12:35] LABS: Troponin I High Sensitivity 23.4 pg/ml (0-20)
[2022-06-25] MEDS ORDERED: SODIUM CHLORIDE 0.9% 1000ML 1,000 ML IV ONE (13:14)
[2022-06-25 13:15] LABS: Influenza B virus by PCR Negative (Neg); RSV by PCR Negative (Neg); SARS CoV2 RNA(COVID-19) Ceph NEGATIVE (Negative)
[2022-06-25 13:19] LABS: Influenza A virus by PCR Positive (Neg)
--- NOTE | 2022-06-25 13:24 | Electrocardiogram Report ---
Test Reason : Blood Pressure : / mmHG Vent. Rate : 098 BPM Atrial Rate : 098 BPM P-R Int : 206 ms QRS Dur : 084 ms QT Int : 362 ms P-R-T Axes : 018 -11 006 degrees QTc Int : 462 ms Poor data quality, interpretation may be adversely affected Normal sinus rhythm Nonspecific ST abnormality When compared with ECG of 01-OCT-2021 18:57, Vent. rate has increased BY 33 BPM Confirmed by Rajan Carr ([id number]) on 06/25/2022 1:24:08 PM Referred By: REFERRED SELF Confirmed By:Carlos Carr
[2022-06-25] MEDS: MAGNESIUM SULFATE / D5W 1 GM/100 ML BAG IV SCH ×2 (13:31→14:32)
--- NOTE | 2022-06-25 14:03 | Emergency Department Note ---
Impression & Plan Acute respiratory failure with hypoxia, Influenza and pneumonia, Hypomagnesemia, Hypokalemia ED Provider Note NAME: TAMMY CHANG AGE: 82 SEX: M ARRIVES VIA: Walk-In INFORMANT: Patient ED PROVIDER(S): Anam Kirby MD CHIEF COMPLAINT: Shortness of breath, referred. PLAN: Disposition: Admit MEDICAL DECISION MAKING: The patient is a pleasant 82-year-old gentleman with a past medical history of dementia, history of COVID-19, hypertension, hyperlipidemia who presents to the emergency department [facility] for shortness of breath and hypoxia after being seen in the office for evaluation of cough, congestion and shortness of breath that developed over the past several days. His reports decreased oral intake but denies any vomiting or diarrhea. Denies urinary symptoms. On arrival the patient is fatigued but no acute distress, afebrile with O2 saturation initially 92% and greater however eventually did have hypoxia to 87% on room air and placed on nasal cannula. Heart rate was initially in the 100s and blood pressure 80s/60s in triage but improving to the 90s and 120s/80s once in the room on the stretcher. The patient appears clinically dry. He has wheezes and rhonchi of bilateral lower lung mohr. He appears mildly dyspneic but is in no acute distress. He appears clinically dry. EKG without overt acute ischemia. CXR negative for acute cardiopulmonary process though chronic interstitial thickening is noted. WBC, hemoglobin and platelets within normal limits. Chemistry without metabolic acidosis. Potassium 3.4 magnesium 1.6 with repletion initiated. Electrolytes otherwise unremarkable. LFTs mildly elevated with AST and ALT 124 and ALT 63, respectively, nonspecific. Total bilirubin and alk phos within normal limits. High-sensitivity troponin 23.4, nonspecific. BNP within normal limits. Influenza a PCR was positive. COVID-19 and RSV PCR's were negative. Given the patient's hypoxia with relatively clear chest x-ray CTA of the chest was performed to further evaluate hypoxia. CT of the chest was negative for PE though limited evaluation due to motion. Interstitial lung disease is noted that has progressed since 2010. There are dependent airspace opacities which given the patient's hypoxia is suspicious for component of pneumonitis. Procalcitonin ordered for additional joanne cterization. Patient has been treated with IV fluid hydration, steroids, DuoNeb, guaifenesin with improvement in his symptoms as well as HR and BP. However still with O2 requirement. CURB65 moderate-high risk. Tamiflu initiated. Patient and his agree with plan for admission for further management. Case was discussed with Dr. Zhang, [facility] hospitalist, who will evaluate the patient for admission. Triage Nursing notes reviewed and agree them. Prior medical records reviewed Vital Signs: reviewed Differential diagnosis: Reactive airway disease, pneumonia, pneumothorax, COPD, CHF, infections, cardiac ischemia, pulmonary embolism, musculoskeletal, gastrointestinal, as well as other pathologies. ER treatment provided: See below. Diagnostics interpreted by me: ECG: Normal sinus rhythm, 98 bpm, no ectopy, nonspecific ST abnormality, no overt ST elevation or depression, QTC 460, QRS 84. Cardiac Monitoring: An order for continuous cardiac monitoring was placed and demonstrated normal sinus rhythm, 62 bpm, no ectopy. Laboratory studies: See below Imaging studies: See below Consultation(s): Case was discussed with Dr. Zhang [facility] hospitalist, who will evaluate the patient for admission. HPI: The patient is a pleasant 82-year-old gentleman with a past medical history of dementia, history of COVID-19, hypertension, hyperlipidemia who presents to the emergency department referred [facility] for shortness of breath and hypoxia after being seen in the office for evaluation of cough, congestion and shortness of breath that developed over the past several days. His reports decreased oral intake but denies any vomiting or diarrhea. Denies urinary symptoms. ROS: See above HPI for pertinent positives & negatives. A total of 10 systems reviewed and were otherwise negative. VITALS:See Below PHYSICAL EXAMINATION: GENERAL: Awake, alert, fatigued-appearing, in no distress HENT: Normocephalic, atraumatic. Oropharynx with dry mucous membranes and otherwise unremarkable. EYES: Normal conjunctiva. Sclera non-icteric. NECK: Supple. No nuchal rigidity. FROM. No JVD. RESPIRATORY: Wheezes and rhonchi bilateral lower lung mohr. Mildly dyspneic without significant increased work of breathing. CARDIAC: Tachycardic rate, normal rhythm. Extremities warm and well perfused. Pulses equal. ABDOMEN: Soft, non-distended. No tenderness to palpation. No rebound or guarding. No masses. RECTAL: Deferred. MUSCULOSKELETAL: Chest examination reveals no tenderness. The back is symmetrical on inspection without obvious abnormality. There is no CVA tenderness to palpation. No joint edema. LOWER EXTREMITIES: Calves are equal size bilaterally and non-tender. No edema. No discoloration. NEURO: Normal sensorium. No sensory or motor deficits noted. SKIN: No rash or jaundice noted. ED COURSE: Critical Care: I have personally spent greater than 35 minutes of critical care time in the direct management of this patient. This includes bedside care, interpretation of diagnostic studies, and testing, discussion with consultants, patient, and family members, and other required patient management activities. This 35 minutes is in excess of all separately billable procedures. Anam Kirby MD Past Med/Surg History Medical History Cataract Dementia Fistula Hearing deficit Hyperlipemia Surgical abdomen Thoracic aortic aneurysm Vitamin B 12 deficiency Surgical History S/P colostomy S/P hernia repair Social History Smoking Status: Never smoker Tobacco Type: Smokeless Tobacco (Dip or Chew) Hx Alcohol Use: No Hx Substance Use: No Preferred Language: Andorran Communication Ability: Effective Visual Impairment: Limited Hearing Ability: Hard of Hearing Beliefs That Will Affect Care: None marital status: Current Living Situation: Spouse current occupational status: retired Feels Safe at Home: Yes Allergies Allergies Allergy/AdvReac Type Severity Reaction Status Date / Time tramadol [From Ultram] Allergy Unknown CAN'T Verified 06/25/22 16:05 REMEMBER lisinopril AdvReac Intermediate Cough Verified 06/25/22 16:05 Home Meds Home Medications Medication Instructions Recorded Confirmed amlodipine 5 mg tablet 5 mg PO QAM 01/01/21 06/25/22 atorvastatin 20 mg tablet 20 mg PO QAM 01/01/21 06/25/22 cholecalciferol (vitamin D3) 25 25 mcg PO QAM 01/01/21 06/25/22 mcg (1,000 unit) capsule citalopram 10 mg tablet 5 mg PO QAM 01/01/21 06/25/22 cyanocobalamin (vitamin B-12) 1,000 mcg PO QAM 01/01/21 06/25/22 1,000 mcg capsule glucosamine sulfate 2KCl 1,000 mg 1,000 mg PO QAM 01/01/21 06/25/22 tablet (Glucosamine Relief) losartan 50 mg tablet 50 mg PO QAM 01/01/21 06/25/22 pantoprazole 40 mg tablet,delayed 40 mg PO QAM 01/01/21 06/25/22 release diphenhydramine HCl 25 mg capsule 25 mg PO HS PRN Sleep 07/17/21 06/25/22 (Allergy (diphenhydramine)) ibuprofen 200 mg tablet (Advil) 600 mg PO Q6H PRN Pain 07/17/21 06/25/22 ascorbate calcium (vitamin C) 500 500 mg PO QAM 02/21/22 06/25/22 mg tablet Results & Data (ED) Vital Signs Vital Signs - 24 hr 06/25/22 11:30 06/25/22 12:00 06/25/22 12:32 Temperature 36.7 C Temperature Source Temporal Artery Scan Pulse Rate 100 H Pulse Rate from SpO2 Sensor 101 H Pulse Rhythm Respiratory Rate 20 Respiratory Effort / Characteristics Non-Labored Respiratory Depth Normal Blood Pressure 86/57 L 125/75 Blood Pressure Mean 66 91 Blood Pressure Position Sitting Pulse Oximetry 97 93 Oxygen Delivery Method Room Air Room Air Room Air Oxygen Flow Rate Sepsis Recent Fever Within 48 Hours No Sepsis New/Unexplained Change in Mental Status No Sepsis Action Taken by Nursing No Action Required 06/25/22 12:30 06/25/22 12:30 06/25/22 12:52 Temperature Temperature Source Pulse Rate 98 H 96 H Pulse Rate from SpO2 Sensor 98 H Pulse Rhythm Respiratory Rate 27 H 18 Respiratory Effort / Characteristics Respiratory Depth Blood Pressure 133/78 Blood Pressure Mean 96 Blood Pressure Position Pulse Oximetry 92 87 L Oxygen Delivery Method Room Air Room Air Oxygen Flow Rate Sepsis Recent Fever Within 48 Hours Sepsis New/Unexplained Change in Mental Status Sepsis Action Taken by Nursing 06/25/22 12:53 06/25/22 13:00 06/25/22 13:00 Temperature Temperature Source Pulse Rate 96 H 97 H Pulse Rate from SpO2 Sensor 97 H Pulse Rhythm Regular Respiratory Rate 18 30 H Respiratory Effort / Characteristics Respiratory Depth Blood Pressure 119/80 Blood Pressure Mean 93 Blood Pressure Position Pulse Oximetry 94 94 Oxygen Delivery Method Nasal Cannula Room Air Oxygen Flow Rate 2 Sepsis Recent Fever Within 48 Hours Sepsis New/Unexplained Change in Mental Status Sepsis Action Taken by Nursing 06/25/22 13:30 06/25/22 13:30 06/25/22 14:15 Temperature Temperature Source Pulse Rate 96 H 89 Pulse Rate from SpO2 Sensor 97 H Pulse Rhythm Respiratory Rate 28 H 18 Respiratory Effort / Characteristics Respiratory Depth Blood Pressure 126/81 Blood Pressure Mean 96 Blood Pressure Position Pulse Oximetry 95 Oxygen Delivery Method Nasal Cannula Oxygen Flow Rate 2 Sepsis Recent Fever Within 48 Hours Sepsis New/Unexplained Change in Mental Status Sepsis Action Taken by Nursing 06/25/22 14:30 06/25/22 14:30 06/25/22 15:00 Temperature Temperature Source Pulse Rate 90 Pulse Rate from SpO2 Sensor 90 Pulse Rhythm Respiratory Rate 19 Respiratory Effort / Characteristics Respiratory Depth Blood Pressure 130/74 103/75 Blood Pressure Mean 92 84 Blood Pressure Position Pulse Oximetry 95 Oxygen Delivery Method Nasal Cannula Oxygen Flow Rate 2 Sepsis Recent Fever Within 48 Hours Sepsis New/Unexplained Change in Mental Status Sepsis Action Taken by Nursing 06/25/22 15:00 06/25/22 16:00 06/25/22 16:13 Temperature 36.8 C Temperature Source Oral Pulse Rate 87 Pulse Rate from SpO2 Sensor 87 88 Pulse Rhythm Respiratory Rate 25 H 20 Respiratory Effort / Characteristics Respiratory Depth Blood Pressure 132/81 Blood Pressure Mean 98 Blood Pressure Position Pulse Oximetry 96 96 Oxygen Delivery Method Nasal Cannula Nasal Cannula Oxygen Flow Rate 2 2 Sepsis Recent Fever Within 48 Hours Sepsis New/Unexplained Change in Mental Status Sepsis Action Taken by Nursing 06/25/22 17:00 Temperature Temperature Source Pulse Rate 88 Pulse Rate from SpO2 Sensor Pulse Rhythm Respiratory Rate 24 Respiratory Effort / Characteristics Respiratory Depth Blood Pressure 137/81 Blood Pressure Mean 99 Blood Pressure Position Pulse Oximetry 93 Oxygen Delivery Method Room Air Oxygen Flow Rate Sepsis Recent Fever Within 48 Hours Sepsis New/Unexplained Change in Mental Status Sepsis Action Taken by Nursing Laboratory Data Attestation: I reviewed the patient's lab results. Result diagrams: 06/25/22 11:50 06/25/22 11:50 Lab Results 06/25/22 06/25/22 06/25/22 Range/Units 11:50 11:50 11:50 WBC 7.05 (4.8-10.8) K/ul RBC 4.34 L (4.63-6.08) M/uL Hgb 14.0 (14.0-18.0) g/dl Hct 40.0 L (40.1-51.0) % MCV 92.2 (80.0-100.0) fL MCH 32.3 (25.0-34.0) pg MCHC 35.0 (32.0-36.0) g/dL RDW Std Deviation 41.5 (36.4-46.3) fL RDW Coeff of Yousuf 12.2 (11.5-14.5) % Plt Count 209 (130-400) K/uL MPV 9.8 (9.4-12.4) fL Immature Gran % (Auto) 0.3 % Neut % (Auto) 67.9 % Lymph % (Auto) 16.3 % [place] % (Auto) 14.8 % Eos % (Auto) 0.3 % Baso % (Auto) 0.4 % Neut # (Auto) 4.79 (1.4-6.5) K/uL Lymph # (Auto) 1.15 L (1.2-3.4) K/uL [place] # (Auto) 1.04 H (0.24-0.82) K/uL Eos # (Auto) 0.02 (0-0.50) K/uL Baso # (Auto) 0.03 (0-0.2) K/uL Immature Gran # (Auto) 0.02 (0.00-0.02) K/uL Sodium 135 L (136-145) mmol/L Potassium 3.4 L (3.5-5.1) mmol/L Chloride 96 L (98-107) mmol/L Carbon Dioxide 24 (21-32) mmol/L Anion Gap 15 H (3-11) BUN 15 (6-23) mg/dl Creatinine 1.27 (0.6-1.4) mg/dl Est Cr Clr Drug Dosing 53.5 ml/min Est GFR ( Amer) 61.4 ml/min Est GFR (Non-Af Amer) 53.0 ml/min BUN/Creatinine Ratio 11.8 (10-20) Glucose 133 H (70-99(Fasting)) mg/dl Calcium 9.2 (8.5-10.1) mg/dl Phosphorus 3.5 (2.5-4.9) mg/dl Magnesium 1.6 L (1.7-2.4) mg/dl Total Bilirubin 0.9 (0.2-1.0) mg/dl AST 124 H (13-39) U/L ALT 63 H (7-52) U/L Alkaline Phosphatase 81 (34-104) U/L Troponin I High Sens 23.4 H (0-20) pg/ml B-Natriuretic Peptide Cancelled Total Protein 8.5 H (6.0-8.3) gm/dl Albumin 4.7 (3.4-5.0) gm/dl Globulin 3.8 (2.5-4.0) gm/dl Albumin/Globulin Ratio 1.2 (0.9-2) Lipase 21 (11-82) U/L Procalcitonin (0-0.5) ng/ml SARS-CoV-2 (PCR) (Negative) Influenza Type A (PCR) (Neg) Influenza Type B (PCR) (Neg) RSV (RT-PCR) (Neg) 06/25/22 06/25/22 06/25/22 Range/Units 11:50 12:09 12:29 WBC (4.8-10.8) K/ul RBC (4.63-6.08) M/uL Hgb (14.0-18.0) g/dl Hct (40.1-51.0) % MCV (80.0-100.0) fL MCH (25.0-34.0) pg MCHC (32.0-36.0) g/dL RDW Std Deviation (36.4-46.3) fL RDW Coeff of Yousuf (11.5-14.5) % Plt Count (130-400) K/uL MPV (9.4-12.4) fL Immature Gran % (Auto) % Neut % (Auto) % Lymph % (Auto) % [place] % (Auto) % Eos % (Auto) % Baso % (Auto) % Neut # (Auto) (1.4-6.5) K/uL Lymph # (Auto) (1.2-3.4) K/uL [place] # (Auto) (0.24-0.82) K/uL Eos # (Auto) (0-0.50) K/uL Baso # (Auto) (0-0.2) K/uL Immature Gran # (Auto) (0.00-0.02) K/uL Sodium (136-145) mmol/L Potassium (3.5-5.1) mmol/L Chloride (98-107) mmol/L Carbon Dioxide (21-32) mmol/L Anion Gap (3-11) BUN (6-23) mg/dl Creatinine (0.6-1.4) mg/dl Est Cr Clr Drug Dosing ml/min Est GFR ( Amer) ml/min Est GFR (Non-Af Amer) ml/min BUN/Creatinine Ratio (10-20) Glucose (70-99(Fasting)) mg/dl Calcium (8.5-10.1) mg/dl Phosphorus (2.5-4.9) mg/dl Magnesium (1.7-2.4) mg/dl Total Bilirubin (0.2-1.0) mg/dl AST (13-39) U/L ALT (7-52) U/L Alkaline Phosphatase (34-104) U/L Troponin I High Sens (0-20) pg/ml B-Natriuretic Peptide 16 Total Protein (6.0-8.3) gm/dl Albumin (3.4-5.0) gm/dl Globulin (2.5-4.0) gm/dl Albumin/Globulin Ratio (0.9-2) Lipase (11-82) U/L Procalcitonin < 0.05 (0-0.5) ng/ml SARS-CoV-2 (PCR) NEGATIVE (Negative) Influenza Type A (PCR) Positive A* (Neg) Influenza Type B (PCR) Negative (Neg) RSV (RT-PCR) Negative (Neg) Administered Medications Discontinued Medications Albuterol (Albut/Ipratrop 3mg/0.5mg Neb 3 Ml Vial) 3 ml NEB NOW STA; Protocol Stop: 06/25/22 11:46 Last Admin: 06/25/22 12:10 Dose: 3 ml Documented By: SALAZAR Dexamethasone Sodium Phosphate (DexamethasonePf 10 Mg/Ml Vial) 10 mg IV NOW ONE Stop: 06/25/22 11:46 Last Admin: 06/25/22 12:06 Dose: 10 mg Documented By: SALAZAR Guaifenesin (Guaifenesin 600 Mg Tabcr) 600 mg PO NOW STA Stop: 06/25/22 11:46 Last Admin: 06/25/22 12:07 Dose: 600 mg Documented By: SALAZAR Sodium Chloride (Nss) 500 mls @ 999 mls/hr IV .Q31M ONE Stop: 06/25/22 12:13 Last Infusion: 06/25/22 12:36 Dose: 0 mls/hr Documented By: Admin: 06/25/22 12:05 Dose: 999 mls/hr Documented By: SALAZAR Sodium Chloride (Nss 1000ml) 1,000 mls @ 999 mls/hr IV .Q1H1M ONE Stop: 06/25/22 14:14 Last Infusion: 06/25/22 14:29 Dose: 0 mls/hr Documented By: Admin: 06/25/22 13:28 Dose: 999 mls/hr Documented By: SALAZAR Magnesium Sulfate/Dextrose (Magnesium Sulfate / D5w) 1 gm in 100 mls @ 100 mls/hr IV Q1H JAZLYN Stop: 06/25/22 15:15 Last Infusion: 06/25/22 15:32 Dose: 0 mls/hr Documented By: Admin: 06/25/22 14:32 Dose: 100 mls/hr Documented By: Infusion: 06/25/22 14:31 Dose: 0 mls/hr Documented By: Admin: 06/25/22 13:31 Dose: 100 mls/hr Documented By: SALAZAR Ioversol (Optiray 320 500ml) 106 ml IV ONCE ONE Stop: 06/25/22 14:10 Last Admin: 06/25/22 14:10 Dose: 106 ml Documented By: CHAZ Oseltamivir Phosphate (Oseltamivir Phosphate 75 Mg Cap) 75 mg PO NOW STA; Protocol Stop: 06/25/22 15:09 Last Admin: 06/25/22 16:08 Dose: 75 mg Documented By: LALA Imaging Data Radiologist's Impression: Chest X-Ray 06/25/22 11:43 XR chest 1V portable CLINICAL HISTORY: sob TECHNIQUE: Single frontal radiograph of the chest was obtained. Comparison: Comparison is made to chest radiograph 10/01/[address] abdomen pelvis 11/21/2014 FINDINGS: No lines and tubes are seen. The cardiomediastinal silhouette is normal. Ret icular interstitial opacities are seen. No evidence of pleural effusion or pneumothorax. Degenerative changes are seen in the bilateral shoulder joints. IMPRESSION: No airspace disease is seen. 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 ACT 112: Negative or not required by law. Electronically signed by: Michael Samuels M.D. 06/25/2022 12:03 PM Chest CTA 06/25/22 13:14 CT ANGIOGRAM OF THE CHEST CLINICAL HISTORY: Hypoxia. Dyspnea COMPARISON STUDY: Chest CT dated 09/17/2010. TECHNIQUE: Following the IV administration of 170 cc of Optiray 320, CT angiogram of the chest was performed from the upper abdomen to the thoracic inlet utilizing the pulmonary embolus protocol. Images are reviewed in the axial, sagittal, and coronal planes. 3-D MIPS images are created and assessed. IV contrast was administered without complication. A dose lowering technique was utilized adhering to the principles of ALARA. The examination is signifi cantly degraded by motion artifact. CT DOSE: 606.64 mGycm FINDINGS: Thyroid: Imaged portions of the thyroid gland are normal in size and attenuation. Thoracic aorta: The thoracic aorta is normal in caliber and demonstrates standard 3-vessel arch anatomy. No dissection is seen. Pulmonary vasculature: The pulmonary trunk is normal in caliber. There are no filling defects identified in main, lobar, or proximal segmental pulmonary branches to suggest pulmonary embolus. Evaluation of the segmental and subsegmental branches is degraded by motion artifact. Heart: The heart is enlarged and without pericardial effusion. The coronary arteries are densely calcified. Lungs and pleural spaces: Evaluation of the lung parenchyma is severely degraded by motion artifact. There is evidence of chronic interstitial lung disease, which has progressed as compared to 09/17/2010. There is subpleural reticulation throughout both lungs with extensive subpleural parenchymal scarring and fibrosis. No honeycombing is seen. Dependent airspace opacities likely represent atelectasis. No pleural effusion is identified. The trachea and central airways are clear. A 4 mm pleural-based nodule in the left upper lobe seen on image #146. Mediastinum: There is no mediastinal lymphadenopathy. Amanda: Mildly enlarged hilar nodes measure up to 13 mm short axis. Axillae: There is no axillary lymphadenopathy. Upper abdomen: There is a tiny hiatal hernia. The liver is too tight. Cholecystectomy clips are noted. Skeletal structures: The skeletal structures are osteopenic. Spondylotic change is seen throughout the spine. Arthritic change is noted in the shoulders. No lytic or blastic bony lesions are seen. IMPRESSION: 1. Significantly motion compromised examination. 2. There is no evidence of central pulmonary embolus in the main, lobar, or proximal segmental pulmonary arteries. Evaluation of the segmental and subs egmental vessels is significantly degraded by motion artifact. 3. Cardiomegaly with changes of chronic interstitial lung disease. This has progressed as compared to 2011. Nonemergent pulmonology follow-up is recommended. 4. Dependent airspace opacities likely represent scarring/atelectasis. Correlate clinically for evidence of a superimposed infectious/inflammatory pneumonitis. 5. Mildly enlarged hilar nodes are nonspecific. 6. Hepatic steatosis. 7. Additional findings as above. ACT 112: Negative or not required by law. Electronically signed by: Frankie Livingston M.D. 06/25/2022 3:02 PM Discharge Plan Visit Data Chief Complaint: Shortness of Breath/Dyspnea Stated Complaint: NEEDS LUNGS CHECKED OUT, LOW OXYGEN ED Provider: Anam Kirby Discharge Problem: Acute respiratory failure with hypoxia, Influenza and pneumonia, Hypomagnesemia, Hypokalemia Discharge Instructions Interventions: ED Discharge Assessment Last Done: 06/25/22 17:47 Risk - CURB-65 Scoring CURB-65 Scoring Confusion: No BUN >19 mg/dl (>7 mmol/L): No Respiratory Rate > or = 30: Yes SBP <90 mmHg or DBP < or = 60 mmHg: Yes Age > or = 65: Yes CURB-65 Total Points: 3 CURB-65 Risk: High Risk Pneumonia CURB-65 Interpretation: Score interpretation (as per derivation study): CURB-65 Mortality Score Risk Recommendations* 0 0.60% Low risk, consider home treatment 1 2.70% Low risk, consider home treatment 2 6.80% Short inpatient hospitalization or closely supervised outpt treatment 3 14.00% Severe pneumonia; hospitalize and consider admitting to intensive care 4 or 5 27.80% Severe pneumonia; hospitalize and consider admitting to intensive care Reference: 1. Jamie JEAN, et. al. Validity of Pneumonia Severity Index and CURB-65 Severity Scoring Systems in Community Acquired Pneumonia in an [place] Setting. The [facility], [place], Operated By [facility] Chest Disease & [facility]. 2010; Vol 52. 2. Ernie D, Shantell TE, Lisa DM, et al. Prospective comparison of three validated prediction rules for prognosis in community-acquired pneumonia. AM. J. Med. 2005; 118(4): 384-92.doi: 10.1016/j.amjmed.2005.01.006. PMID [id number] 3. Carlitos PK, Neva AV, Naila SL, Skip DN, Morgan BD. Seveirty assessment criteria recommended by the [employer] (BTS) for communicty- acquired pneumonia (CAP) and older patients. Should SOAR (systolic blood pressure, oxygenation, age and respiratory rate) criteria be used in older people? A compilation study of two prospective coholrts. Age Ageing. 2006:35 (3):286-91 4. Artie A, Anna Marie PP, Del Valle JM, et al. Validation of a predictive rule f or the management of community-acquired pneumonia. Eur Respir J. 2006:27(1):151-7.
[2022-06-25] MEDS ORDERED: OPTIRAY 320 500ml IV ONE (14:09)
--- NOTE | 2022-06-25 15:04 | CT Scan Report ---
CT ANGIOGRAM OF THE CHEST CLINICAL HISTORY: Hypoxia. Dyspnea COMPARISON STUDY: Chest CT dated 09/17/2010. TECHNIQUE: Following the IV administration of 170 cc of Optiray 320, CT angiogram of the chest was pe rformed from the upper abdomen to the thoracic inlet utilizing the pulmonary embolus protocol. Images are reviewed in the axial, sagittal, and coronal planes. 3-D MIPS images are created and assessed. I V contrast was administered without complication. A dose lowering technique was utilized adhering to the principles of ALARA. The examination is significantly degraded by motion artifact. CT DOSE: 606.64 mGycm FINDINGS: Thyroid: Imaged portions of the thyroid gland are normal in size and attenuation. Thoracic aorta: The thoracic aorta is normal in caliber and demonstrates standard 3-vessel arch anato my. No dissection is seen. Pulmonary vasculature: The pulmonary trunk is normal in caliber. There are no filling defects identif ied in main, lobar, or proximal segmental pulmonary branches to suggest pulmonary embolus. Evaluation of the segmental and subsegmental branches is degraded by motion artifact. Heart: The heart is enlarged and without pericardial effusion. The coronary arteries are densely calc ified. Lungs and pleural spaces: Evaluation of the lung parenchyma is severely degraded by motion artifact. There is evidence of chronic interstitial lung disease, which has progressed as compared to 09/17/2010 . There is subpleural reticulation throughout both lungs with extensive subpleural parenchymal scarri ng and fibrosis. No honeycombing is seen. Dependent airspace opacities likely represent atelectasis. No pleural effusion is identified. The trachea and central airways are clear. A 4 mm pleural-based no dule in the left upper lobe seen on image #146. Mediastinum: There is no mediastinal lymphadenopathy. Amanda: Mildly enlarged hilar nodes measure up to 13 mm short axis. Axillae: There is no axillary lymphadenopathy. Upper abdomen: There is a tiny hiatal hernia. The liver is too tight. Cholecystectomy clips are noted . Skeletal structures: The skeletal structures are osteopenic. Spondylotic change is seen throughout th e spine. Arthritic change is noted in the shoulders. No lytic or blastic bony lesions are seen. IMPRESSION: 1. Significantly motion compromised examination. 2. There is no evidence of central pulmonary embolus in the main, lobar, or proximal segmental pulmon yelena arteries. Evaluation of the segmental and subsegmental vessels is significantly degraded by motio n artifact. 3. Cardiomegaly with changes of chronic interstitial lung disease. This has progressed as compared to 2011. Nonemergent pulmonology follow-up is recommended. 4. Dependent airspace opacities likely represent scarring/atelectasis. Correlate clinically for evide nce of a superimposed infectious/inflammatory pneumonitis. 5. Mildly enlarged hilar nodes are nonspecific. 6. Hepatic steatosis. 7. Additional findings as above. ACT 112: Negative or not required by law. Electronically signed by: Frankie Livingston M.D. 06/25/2022 3:02 PM
[2022-06-25] MEDS ORDERED: OSELTAMIVIR PHOSPHATE 75 MG CAP PO STA (15:08)
--- NOTE | 2022-06-25 15:47 | History & Physical Report ---
Date of Service June 25, 2022 Assessment & Plan (1) Acute respiratory failure with hypoxia: Plan: Patient presents with respiratory failure with accessory muscle use and tachypnea. He is found to be influenza A positive in the emergency department. There is dependent airspace opacities seen on CT scan suspicious for superimposed infectious or inflammatory pneumonitis. Patient started on Tamiflu is on droplet precautions supplemental oxygen Patient be placed on duo nebs 4 times daily ER plus as needed Patient will be given Solu-Medrol 40 every 8 (2) Influenza and pneumonia: Plan: Tamiflu started 75 twice daily (3) Electrolyte abnormality: Plan: Replete potassium and magnesium in the emergency department with recheck on 06/26/2022 (4) Hypertension: Plan: Patient's blood pressures are a bit low emergency department typically take amlodipine and losartan both are being held at this time. He will have backup hydralazine if need be in if his blood pressure stabilizes on admission these medications can be begun in the morning (5) Depression: Plan: Patient continues on citalopram Plan Given infectious/inflammatory etiologies patiently placed on Lovenox his renal function is stable with CKD 3 History of Present Illness Primary Care Provider: [facility] 82-year-old male who typically gets his care at the [place] presents with acute respiratory failure secondary to influenza with possibility of influenza pneumonia seen on CT scan of the chest. Patient has previous history of COVID- 19 and may have some baseline underlying fibrotic change. Patient typically is not on oxygen at home and required supplemental oxygen here with accessory respiratory muscle use and tachypnea. Patient also has mildly elevated troponin which may be from his hypoxia and low potassium and magnesium. Patient currently is COVID-negative on admission. Emergency department he was given nebulized medications and steroids as well as his first dose of Tamiflu. CT scan did rule any thromboembolic phenomena Allergies Allergy/AdvReac Type Severity Reaction Status Date / Time tramadol [From Ultram] Allergy Unknown CAN'T Verified 06/25/22 16:05 REMEMBER lisinopril AdvReac Intermediate Cough Verified 06/25/22 16:05 Home Medications Medication Instructions Recorded Confirmed Type amlodipine 5 mg tablet 5 mg PO QAM 01/01/21 06/25/22 History atorvastatin 20 mg tablet 20 mg PO QAM 01/01/21 06/25/22 History cholecalciferol (vitamin D3) 25 25 mcg PO QAM 01/01/21 06/25/22 History mcg (1,000 unit) capsule citalopram 10 mg tablet 5 mg PO QAM 01/01/21 06/25/22 History cyanocobalamin (vitamin B-12) 1,000 mcg PO QAM 01/01/21 06/25/22 History 1,000 mcg capsule glucosamine sulfate 2KCl 1,000 mg 1,000 mg PO QAM 01/01/21 06/25/22 History tablet (Glucosamine Relief) losartan 50 mg tablet 50 mg PO QAM 01/01/21 06/25/22 History pantoprazole 40 mg tablet,delayed 40 mg PO QAM 01/01/21 06/25/22 History release diphenhydramine HCl 25 mg capsule 25 mg PO HS PRN Sleep 07/17/21 06/25/22 History (Allergy (diphenhydramine)) ibuprofen 200 mg tablet (Advil) 600 mg PO Q6H PRN Pain 07/17/21 06/25/22 History ascorbate calcium (vitamin C) 500 500 mg PO QAM 02/21/22 06/25/22 History mg tablet Past Med/Surg History Medical History Cataract Dementia Fistula Hearing deficit Hyperlipemia Surgical abdomen Thoracic aortic aneurysm Vitamin B 12 deficiency Surgical History S/P colostomy S/P hernia repair Social History Smoking Status: Never smoker Tobacco Type: Smokeless Tobacco (Dip or Chew) Hx Alcohol Use: No Hx Substance Use: No Preferred Language: Frisian Communication Ability: Effective Visual Impairment: Limited Hearing Ability: Hard of Hearing Beliefs That Will Affect Care: None marital status: Current Living Situation: Spouse current occupational status: retired Feels Safe at Home: Yes Review of Systems Review of Systems: Mild distress and fatigue no headache, no visual changes no speech or swallowing issues no chest pain, pressure or palpitations Exertional shortness of breath, has had persistent nonproductive cough no wheezes no abdominal pain, nausea or vomiting, diarrhea or constipation no dysuria, hematuria or frequency no focal joint pain or swelling no back pain, CVA tenderness or radicular pain no bruising, bleeding or rashes no focal signs of weakness or numbness or altered sensation no complaints of anxiety or depression.. Physical Exam Physical Exam: The patient appeared well nourished and normally developed. Vital signs as documented. Head exam is normocephalic atraumatic Neck is without JVD, thyromegaly, or carotid bruits. Lungs are coarse in all lung mohr, no focal loss of breath sounds Cardiac exam, Rhythm is regular.. No murmurs, rubs or gallops. Abdominal exam reveals normal bowel sounds, soft non tender, no masses Extremities are nonedematous and both pedal pulses are present Neurologic exam is alert and oriented x2, no focal loss of strength or sensation Skin is without bruises or rashes Psychologically is without concerns for anxiety or depression.. Results & Data Results & Data ([facility]) Vital Signs (Past 12 Hours) Vital Signs Temp Pulse Resp BP Pulse Ox O2 Del Method O2 Flow Rate 06/25/22 15:00 87 25 H 96 Nasal Cannula 2 06/25/22 15:00 103/75 06/25/22 14:30 90 19 95 Nasal Cannula 2 06/25/22 14:30 130/74 06/25/22 14:15 89 18 06/25/22 13:30 96 H 28 H 95 Nasal Cannula 2 06/25/22 13:30 126/81 06/25/22 13:00 97 H 30 H 94 Room Air 06/25/22 13:00 119/80 06/25/22 12:53 96 H 18 94 Nasal Cannula 2 06/25/22 12:52 96 H 18 87 L Room Air 06/25/22 12:30 98 H 27 H 92 Room Air 06/25/22 12:30 133/78 06/25/22 12:32 Room Air 06/25/22 12:00 125/75 93 Room Air 06/25/22 11:30 98.1 F 100 H 20 86/57 L 97 Room Air Diagnostic Findings Chest X-Ray 06/25/22 11:43 XR chest 1V portable CLINICAL HISTORY: sob TECHNIQUE: Single frontal radiograph of the chest was obtained. Comparison: Comparison is made to chest radiograph 10/01/[address] abdomen pelvis 11/21/2014 FINDINGS: No lines and tubes are seen. The cardiomediastinal silhouette is normal. Reticular interstitial opacities are seen. No evidence of pleural effusion or pneumothorax. Degenerative changes are seen in the bilateral shoulder joints. IMPRESSION: No airspace disease is seen. 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 Electronically signed by: Michael Samuels M.D. 06/25/2022 12:03 PM Chest CTA 06/25/22 13:14 CT ANGIOGRAM OF THE CHEST CLINICAL HISTORY: Hypoxia. Dyspnea COMPARISON STUDY: Chest CT dated 09/17/2010. TECHNIQUE: Following the IV administration of 170 cc of Optiray 320, CT angiogram of the chest was performed from the upper abdomen to the thoracic inlet utilizing the pulmonary embolus protocol. Images are reviewed in the axial, sagittal, and coronal planes. 3-D MIPS images are created and assessed. IV contrast was administered without complication. A dose lowering technique was utilized adhering to the principles of ALARA. The examination is significantly degraded by motion artifact. CT DOSE: 606.64 mGycm FINDINGS: Thyroid: Imaged portions of the thyroid gland are normal in size and attenuation. Thoracic aorta: The thoracic aorta is normal in caliber and demonstrates standard 3-vessel arch anatomy. No dissection is seen. Pulmonary vasculature: The pulmonary trunk is normal in caliber. There are no filling defects identified in main, lobar, or proximal segmental pulmonary branches to suggest pulmonary embolus. Evaluation of the segmental and subsegmental branches is degraded by motion artifact. Heart: The heart is enlarged and without pericardial effusion. The coronary arteries are densely calcified. Lungs and pleural spaces: Evaluation of the lung parenchyma is severely degraded by motion artifact. There is evidence of chronic interstitial lung disease, which has progressed as compared to 09/17/2010. There is subpleural reticulation throughout both lungs with extensive subpleural parenchymal scarring and fibrosis. No honeycombing is seen. Dependent airspace opacities likely represent atelectasis. No pleural effusion is identified. The trachea and central airways are clear. A 4 mm pleural-based nodule in the left upper lobe seen on image #146. Mediastinum: There is no mediastinal lymphadenopathy. Amanda: Mildly enlarged hilar nodes measure up to 13 mm short axis. Axillae: There is no axillary lymphadenopathy. Upper abdomen: There is a tiny hiatal hernia. The liver is too tight. Cholecystectomy clips are noted. Skeletal structures: The skeletal structures are osteopenic. Spondylotic change is seen throughout the spine. Arthritic change is noted in the shoulders. No lytic or blastic bony lesions are seen. IMPRESSION: 1. Significantly motion compromised examination. 2. There is no evidence of central pulmonary embolus in the main, lobar, or proximal segmental pulmonary arteries. Evaluation of the segmental and subsegmental vessels is significantly degraded by motion artifact. 3. Cardiomegaly with changes of chronic interstitial lung disease. This has progressed as compared to 2011. Nonemergent pulmonology follow-up is recommended. 4. Dependent airspace opacities likely represent scarring/atelectasis. Correlate clinically for evidence of a superimposed infectious/inflammatory pneumonitis. 5. Mildly enlarged hilar nodes are nonspecific. 6. Hepatic steatosis. 7. Additional findings as above. Electronically signed by: Frankie Livingston M.D. 06/25/2022 3:02 PM ECG Additional Comments: Normal sinus rhythm with nonspecific lateral T wave changes Code Status & VTE Plan VTE Prophylaxis Plan VTE Prophylaxis will be ordered: Yes PG Care Time/CCT Total # of Minutes Spent Total Time Spent with Patient: Total time spent is greater than 50% in coordination of care (as documented) at patient's floor/unit and/or counseling patient: Coding Level of Care Code 71231 Initial Inpt Care Lvl 3 Diagnoses Acute respiratory failure with hypoxia J96.01 Influenza and pneumonia J11.00 Electrolyte abnormality E87.8 Hypertension I10 Depression F32.A
[2022-06-25] MEDS ORDERED: diphenhydrAMINE Capsule 25 MG CAP PO PRN (17:47)
[2022-06-25] MEDS ORDERED: ONDANSETRON INJ 2 MG/ML 2 ML VIAL IV PRN (17:47)
[2022-06-25] MEDS ORDERED: ACETAMINOPHEN 325 MG TAB PO PRN (17:47)
[2022-06-25] MEDS ORDERED: ALUMINUM/MAGNESIUM SUSP 30 ML UDC PO PRN (17:47)
[2022-06-25] MEDS ORDERED: MAGNESIUM SULFATE / D5W 1 GM/100 ML BAG IV ONE (18:15)
[2022-06-25] MEDS: ALBUT/IPRATROP 3MG/0.5MG NEB 3 ML VIAL NEB SCH (19:12)
[2022-06-25] MEDS: methylPREDNISolone 40 MG in SYRINGE 0 ML IV SCH (19:32)
[2022-06-25] MEDS: ENOXAPARIN INJ 40 MG/0.4 ML SYR SQ SCH (20:32)
[2022-06-25] MEDS: OSELTAMIVIR PHOSPHATE SUSP 30 MG/5 ML UDP PO SCH (20:32)
[2022-06-25] MEDS: POTASSIUM CHLORIDE CRTAB 20 MEQ TABCR PO SCH (20:32)
[2022-06-26] MEDS: methylPREDNISolone 40 MG in SYRINGE 0 ML IV SCH ×3 (03:59→21:34)
[2022-06-26 05:03] LABS: Hematocrit (blood only) 34.8 % (40.1-51.0); Hemoglobin 12.3 g/dl (14.0-18.0); Mean Corpuscular Hemoglobin 31.9 pg (25.0-34.0); Mean Corpuscular Hgb Conc 35.3 g/dL (32.0-36.0); Mean Corpuscular Volume 90.4 fL (80.0-100.0); Platelet Count 198 K/uL (130-400); RDW Coefficient of Variation 12.2 % (11.5-14.5); RDW Standard Deviation 40.3 fL (36.4-46.3); Red Blood Count 3.85 M/uL (4.63-6.08); White Blood Count 5.21 K/ul (4.8-10.8)
[2022-06-26 05:41] LABS: BUN Creatinine Ratio 18.6 (10-20); Calcium 8.6 mg/dl (8.5-10.1); Est GFR (African American) 85.1 ml/min; Est GFR (Non-African American) 73.4 ml/min; Magnesium 2.3 mg/dl (1.7-2.4); Potassium 4.4 mmol/L (3.5-5.1)
[2022-06-26] MEDS: ALBUT/IPRATROP 3MG/0.5MG NEB 3 ML VIAL NEB SCH ×3 (05:59→15:26)
--- NOTE | 2022-06-26 08:10 | Hospitalist Progress Note ---
Date of Service June 26, 2022 Assessment & Plan (1) Acute respiratory failure with hypoxia: Plan: Patient presents with respiratory failure with accessory muscle use and tachypnea. He is found to be influenza A positive in the emergency department. There is dependent airspace opacities seen on CT scan suspicious for superimposed infectious or inflammatory pneumonitis. - Currently on 2L NC with SPO2 in the mid 90s Plan: - Solu-Medrol 40 q8 - duonebs prn - Tamiflu - droplet precautions (2) Influenza and pneumonia: Plan: Tamiflu started 75 twice daily (3) Electrolyte abnormality: Plan: Repleted potassium and magnesium in ED Continue to trend (4) Hypertension: Plan: Patient's blood pressures are a bit low emergency department typically take amlodipine and losartan both are being held at this time. He will have backup hydralazine if need be in if his blood pressure stabilizes on admission these medications can be begun in the morning (5) Depression: Plan: Patient continues on citalopram Plan Given infectious/inflammatory etiologies patiently placed on Lovenox his renal function is stable with CKD 3 Admission and Anticipated Discharge Date Admission Date: June 25, 2022 Supervising Physician Co-Signing Physician Notes Attending attestation Pt seen and examined in concert with Dr. Back. In agreement with the documented findings as noted in the resident documentation with any exceptions or additions as noted here. Pleasantly confused at baseline per spouse at bedside and without acute complaint at present. VS, nursing notes, imaging, labs reviewed. On examination, S1/S2 nl RRR no MCG. CTAB. Abd NT/ND BS+ve Acute hypoxic respiratory failure in the setting of influenza with concern for PNA - abn CXR but with negative procal and nl WBC - agree w/ Tamiflu, encourage spouse who is unvaccinated for flu to connect w/ PCP re: prophylaxis if applicable. Will continue solu-medrol for now but may rapidly taper by clinical improvement. O2 per protocol. Treatment for CAP with any worsening in symptoms/imaging. Hypokalemia and mangesemia - repleted HTN - holding BP medications with hydralazine PRN for parameters. Else see resident documentation as noted. Subjective 82 year old male with a past medical history of dementia, history of COVID-19, hypertension, hyperlipidemia. Presenting with acute respiratory failure secondary to influenza. No oxygen at baseline, requiring supplemental oxygen. CXR with chronic interstial disease. CT chest Dependent airspace opacities scarring/atelectasis vs superimposed infectious/inflammatory pneumonitis. Patient feeling when this morning. States he has a mild cough, dyspnea has improved. Review of Systems Review of Systems: As per HPI Physical Exam Physical Exam: Constitutional: well-appearing, no acute distress HEENT: NCAT, no conjunctival injection CV: regular rhythm, no murmur appreciated, extremities well-perfused, no LE edema Resp: mild expiratory wheeze GI: soft, nondistended, nontender, BS normoactive MSK: no gross deformities appreciated Skin: warm, dry, no rash appreciated Neuro: alert, oriented, no focal neurologic deficit appreciated Results & Data Results & Data ([facility]) Vital Signs (Past 12 Hours) Vital Signs Temp Pulse Resp BP Pulse Ox O2 Del Method O2 Flow Rate 06/26/22 06:00 73 18 94 Nasal Cannula 2 06/26/22 06:00 76 18 100 Room Air 06/26/22 01:00 37.6 C H 65 18 126/86 95 Room Air Resident Activity Tracking Resident Involvement: Resident Care Provided Care Provided: Adult Hospital Medicine
[2022-06-26] MEDS: ZINC SULFATE 220 MG CAPSULE PO SCH (08:39)
[2022-06-26] MEDS: CITALOPRAM 20 MG TAB PO SCH (08:39)
[2022-06-26] MEDS: PANTOprazole 40 MG TAB PO SCH (08:40)
[2022-06-26] MEDS: POTASSIUM CHLORIDE CRTAB 20 MEQ TABCR PO SCH (08:40)
[2022-06-26] MEDS: OSELTAMIVIR PHOSPHATE SUSP 30 MG/5 ML UDP PO SCH (08:40)
[2022-06-26] MEDS: CHOLECALCIFEROL 1,000 UNITS 25 MCG TAB PO SCH (08:40)
[2022-06-26] MEDS: ATORVASTATIN 20 MG TAB PO SCH (08:40)
[2022-06-26] MEDS ORDERED: ALBUT/IPRATROP 3MG/0.5MG NEB 3 ML VIAL NEB PRN (16:16)
[2022-06-26] MEDS ORDERED: PNEUMOCOCCAL POLYSACCHARIDES 25 MCG/0.5 ML VIAL/SYR IM ONE (17:05)
[2022-06-26] MEDS ORDERED: INFLUENZA VACCINE HIGH DOSE PF 65+ 0.7 ML SYR IM ONE (17:05)
[2022-06-26] MEDS: ENOXAPARIN INJ 40 MG/0.4 ML SYR SQ SCH (21:34)
[2022-06-26] MEDS: OSELTAMIVIR PHOSPHATE 75 MG CAP PO SCH (21:35)
[2022-06-27] MEDS: methylPREDNISolone 40 MG in SYRINGE 0 ML IV SCH ×2 (04:20→12:16)
[2022-06-27 06:23] LABS: Hematocrit (blood only) 34.7 % (40.1-51.0); Hemoglobin 11.8 g/dl (14.0-18.0); Mean Corpuscular Hemoglobin 31.7 pg (25.0-34.0); Mean Corpuscular Volume 93.3 fL (80.0-100.0); Mean Platelet Volume 10.2 fL (9.4-12.4); Platelet Count 212 K/uL (130-400); RDW Coefficient of Variation 12.2 % (11.5-14.5); Red Blood Count 3.72 M/uL (4.63-6.08)
[2022-06-27 06:47] LABS: BUN Creatinine Ratio 29.7 (10-20); Calcium 8.6 mg/dl (8.5-10.1); Creatinine Clr Calc Pharmacy 67.5 ml/min; Est GFR (Non-African American) 69.9 ml/min; Potassium 4.5 mmol/L (3.5-5.1)
[2022-06-27] MEDS: OSELTAMIVIR PHOSPHATE 75 MG CAP PO SCH ×2 (07:56→20:52)
--- NOTE | 2022-06-27 08:04 | Hospitalist Progress Note ---
Date of Service June 27, 2022 Assessment & Plan (1) Acute respiratory failure with hypoxia: Plan: Patient presents with respiratory failure with accessory muscle use and tachypnea. He is found to be influenza A positive in the emergency department. There is dependent airspace opacities seen on CT scan suspicious for superimposed infectious or inflammatory pneumonitis. - Currently on room air with SPO2 in the mid 90s - Leukocytosis to 16, likely reactive secondary to steroids Plan: - Transition from Solu-Medrol 40 q8 to prednisone 50 - duonebs prn - Tamiflu - droplet precautions - Will check chest x-ray in the morning - PT/OT eval (2) Influenza and pneumonia: Plan: Tamiflu started 75 twice daily (3) Electrolyte abnormality: Plan: Repleted potassium and magnesium in ED Continue to trend (4) Hypertension: Plan: Patient's blood pressures are a bit low emergency department typically take amlodipine and losartan both are being held at this time. Continue to hold amlodipine/losartan as blood pressures have been well controlled without mediations (5) Depression: Plan: Patient continues on citalopram Plan Given infectious/inflammatory etiologies patiently placed on Lovenox his renal function is stable with CKD 3 Admission and Anticipated Discharge Date Admission Date: June 25, 2022 Supervising Physician Co-Signing Physician Notes Attending Attestation I also saw the patient confirmed haas portions of the history and physical examination. Agree with impression plan as noted in the resident documentation. Upon mid afternoon exam, the patient is resting comfortably in bed. He has no complaints and states that he feels " well." His is at bedside. From her point of view, he seems to be at his baseline in terms of his mental statu s/acuity, but she suspects he is weaker than baseline in terms of activity. Exam 138/76, 61, 19, 36.5, 94% on room air Heart regular rate and rhythm Lungs clear with nonlabored respirations Abdomen soft nontender Data White blood cell count 16.4, hemoglobin 11.8 Sodium 134, potassium 4.5, BUN 30, creatinine 1.01 Acute hypoxic respiratory failure in the setting of influenza A Clinically improved today Change Solu-Medrol to prednisone 40 mg daily in AM Continue Tamiflu PT/OT consultation Additional per resident documentation Subjective 82 year old male with a past medical history of dementia, history of COVID-19, hypertension, hyperlipidemia. Presenting with acute respiratory failure secondary to influenza. No oxygen at baseline, requiring supplemental oxygen. CXR with chronic interstial disease. CT chest Dependent airspace opacities sc arring/atelectasis vs superimposed infectious/inflammatory pneumonitis. Patient feeling when this morning. Alert to person and place. States he has a mild cough, dyspnea has improved. Was on room air at this morning with SPO2 in the mid 90s. Review of Systems Review of Systems: As per HPI Physical Exam Physical Exam: Constitutional: well-appearing, no acute distress HEENT: NCAT, no conjunctival injection CV: regular rhythm, no murmur appreciated, extremities well-perfused, no LE edema Resp: lungs CTA GI: soft, nondistended, nontender, BS normoactive MSK: no gross deformities appreciated Skin: warm, dry, no rash appreciated Neuro: alert, oriented, no focal neurologic deficit appreciated Results & Data Results & Data ([facility]) Vital Signs (Past 12 Hours) Vital Signs Temp Pulse Resp BP Pulse Ox O2 Del Method 06/27/22 04:35 36.4 C L 67 20 111/63 94 Room Air 06/26/22 23:57 36.5 C 67 20 112/52 L 94 Room Air Resident Activity Tracking Resident Involvement: Resident Care Provided Care Provided: Adult Hospital Medicine
[2022-06-27] MEDS: ATORVASTATIN 20 MG TAB PO SCH (08:42)
[2022-06-27] MEDS: CITALOPRAM 20 MG TAB PO SCH (08:42)
[2022-06-27] MEDS: ZINC SULFATE 220 MG CAPSULE PO SCH (08:43)
[2022-06-27] MEDS: PANTOprazole 40 MG TAB PO SCH (08:43)
[2022-06-27] MEDS: CHOLECALCIFEROL 1,000 UNITS 25 MCG TAB PO SCH (08:43)
--- NOTE | 2022-06-27 20:05 | Electrocardiogram Report ---
Test Reason : Blood Pressure : / mmHG Vent. Rate : 064 BPM Atrial Rate : 064 BPM P-R Int : 228 ms QRS Dur : 088 ms QT Int : 430 ms P-R-T Axes : 042 004 032 degrees QTc Int : 443 ms Sinus rhythm with 1st degree A-V block Otherwise normal ECG When compared with ECG of 25-JUN-2022 12:24, Vent. rate has decreased BY 34 BPM T wave amplitude has increased in Anterolateral leads Confirmed by Rajan Carr ([id number]) on 06/27/2022 8:05:36 PM Referred By: REFERRED SELF Confirmed By:Carlos Carr
[2022-06-27] MEDS: ENOXAPARIN INJ 40 MG/0.4 ML SYR SQ SCH (20:52)
[2022-06-28 06:04] LABS: Hematocrit (blood only) 33.5 % (40.1-51.0); Hemoglobin 11.7 g/dl (14.0-18.0); Mean Corpuscular Hgb Conc 34.9 g/dL (32.0-36.0); Mean Corpuscular Volume 91.5 fL (80.0-100.0); Mean Platelet Volume 10.1 fL (9.4-12.4); Platelet Count 214 K/uL (130-400); RDW Standard Deviation 40.4 fL (36.4-46.3); Red Blood Count 3.66 M/uL (4.63-6.08); White Blood Count 14.87 K/ul (4.8-10.8)
[2022-06-28 06:28] LABS: BUN Creatinine Ratio 30.8 (10-20); Calcium 8.5 mg/dl (8.5-10.1); Est GFR (African American) 91.9 ml/min; Est GFR (Non-African American) 79.3 ml/min; Magnesium 1.9 mg/dl (1.7-2.4); Potassium 4.1 mmol/L (3.5-5.1)
--- NOTE | 2022-06-28 07:27 | Hospitalist Progress Note ---
Date of Service June 28, 2022 Assessment & Plan (1) Acute respiratory failure with hypoxia: Plan: Patient presents with respiratory failure with accessory muscle use and tachypnea. He is found to be influenza A positive in the emergency department. There is dependent airspace opacities seen on CT scan suspicious for superimposed infectious or inflammatory pneumonitis. - Currently on room air with SPO2 in the mid 90s - Leukocytosis to 16, likely reactive secondary to steroids -> down to 14 this morning Plan: - Transition from Solu-Medrol 40 q8 to prednisone 40 qAM - duonebs prn - Tamiflu day 3 - droplet precautions - CXR without acute procrss - PT/OT eval pending; stable from d/c from a medical perspcitve after PT/OP evaualtion (2) Influenza and pneumonia: Plan: Tamiflu started 75 twice daily (3) Electrolyte abnormality: Plan: Repleted potassium and magnesium in ED Continue to trend (4) Hypertension: Plan: Patient's blood pressures are a bit low emergency department typically take amlodipine and losartan both are being held at this time. Continue to hold amlodipine/losartan as blood pressures have been well controlled without mediations (5) Depression: Plan: Patient continues on citalopram Plan Given infectious/inflammatory etiologies patiently placed on Lovenox his renal function is stable with CKD 3 Admission and Anticipated Discharge Date Admission Date: June 25, 2022 Subjective 82 year old male with a past medical history of dementia, history of COVID-19, hypertension, hyperlipidemia. Presenting with acute respiratory failure secondary to influenza. No oxygen at baseline, requiring supplemental oxygen. CXR with chronic interstial disease. CT chest Dependent airspace opacities scarring/atelectasis vs superimposed infectious/inflammatory pneumonitis. Pt states he is going well today. Denies fever/chills, cough, dyspnea, chest pain. Is eating well. Review of Systems Review of Systems: As per HPI Physical Exam Physical Exam: Constitutional: well-appearing, no acute distress HEENT: NCAT, no conjunctival injection CV: regular rhythm, no murmur appreciated, extremities well-perfused, no LE edema Resp: lungs CTA GI: soft, nondistended, nontender, BS normoactive MSK: no gross deformities appreciated Skin: warm, dry, no rash appreciated Neuro: alert, oriented, no focal neurologic deficit appreciated Results & Data Results & Data ([place]) Vital Signs (Past 12 Hours) Vital Signs Temp Pulse Resp BP Pulse Ox O2 Del Method 06/28/22 04:30 36.5 C 55 L 18 129/77 95 Room Air 06/27/22 23:08 36.5 C 63 18 120/72 93 Room Air Resident Activity Tracking Resident Involvement: Resident Care Provided Care Provided: Adult Hospital Medicine
[2022-06-28] MEDS: ATORVASTATIN 20 MG TAB PO SCH (08:50)
[2022-06-28] MEDS: OSELTAMIVIR PHOSPHATE 75 MG CAP PO SCH (08:50)
[2022-06-28] MEDS: CITALOPRAM 20 MG TAB PO SCH (08:51)
[2022-06-28] MEDS: PANTOprazole 40 MG TAB PO SCH (08:51)
[2022-06-28] MEDS: CHOLECALCIFEROL 1,000 UNITS 25 MCG TAB PO SCH (08:51)
[2022-06-28] MEDS: ZINC SULFATE 220 MG CAPSULE PO SCH (08:52)
[2022-06-28] MEDS ORDERED: predniSONE 50 MG TAB PO SCH (09:00)
[2022-06-28] MEDS ORDERED: predniSONE 20 MG TAB PO SCH (09:00)
--- NOTE | 2022-06-28 09:46 | XRay Report ---
TWO VIEW CHEST CLINICAL HISTORY: Hypoxia. Leukocytosis. FINDINGS: PA and lateral chest radiographs are compared to chest x-ray and chest CT dated 06/25/2022. The heart is enlarged noting atherosclerotic calcification of the thoracic aorta. The pulmonary vasc ulature is noncongested. Emphysema and chronic interstitial thickening similar to previous. There is likely superimposed chronic interstitial lung disease. Scarring/atelectasis is noted at the lung base s. No airspace consolidation or pleural effusion is identified. There is no pneumothorax. The skeleta l structures are osteopenic. The bony thorax appears intact. Degenerative change is noted in the thor acic spine. Cholecystectomy clips are seen in the upper abdomen. IMPRESSION: Cardiomegaly and chronic pulmonary parenchymal changes as above with no acute cardiopulmo nary abnormality identified. ACT 112: Negative or not required by law. Electronically signed by: Frankie Livingston M.D. 06/28/2022 9:44 AM
--- NOTE | 2022-06-28 15:28 | Discharge Summary ---
Date of Service June 28, 2022 Admission HPI Per Admitting Provider 82-year-old male who typically gets his care at the [facility] presents with acute respiratory failure secondary to influenza with possibility of influenza pneumonia seen on CT scan of the chest. Patient has previous history of COVID- 19 and may have some baseline underlying fibrotic change. Patient typically is not on oxygen at home and required supplemental oxygen here with accessory respiratory muscle use and tachypnea. Patient also has mildly elevated troponin which may be from his hypoxia and low potassium and magnesium. Patient currently is COVID-negative on admission. Emergency department he was given nebulized medications and steroids as well as his first dose of Tamiflu. CT scan did rule any thromboembolic phenomena Principal Diagnosis Influenza Discharge Exam Constitutional: well-appearing, no acute distress HEENT: NCAT, no conjunctival injection CV: regular rhythm, no murmur appreciated, extremities well-perfused, no LE edema Resp: CTABL, no wheezes/rales/rhonchi appreciated, no increased work of breathing GI: soft, nondistended, nontender, BS normoactive MSK: no gross deformities appreciated Skin: warm, dry, no rash appreciated Neuro: alert, oriented, no focal neurologic deficit appreciated Discharge Data Allergies Allergy/AdvReac Type Severity Reaction Status Date / Time tramadol [From Ultram] Allergy Unknown CAN'T Verified 06/25/22 16:05 REMEMBER lisinopril AdvReac Intermediate Cough Verified 06/25/22 16:05 Consultations 06/25/22 15:49 ED Decision to Admit Stat Ordered Studies 06/25/22 13:14 CT angio chest PE protocol Stat Laboratory Results WBC 14.87 K/ul (4.8-10.8) H 06/28/22 05:41 RBC 3.66 M/uL (4.63-6.08) L 06/28/22 05:41 Hgb 11.7 g/dl (14.0-18.0) L 06/28/22 05:41 Hct 33.5 % (40.1-51.0) L 06/28/22 05:41 MCV 91.5 fL (80.0-100.0) 06/28/22 05:41 MCH 32.0 pg (25.0-34.0) 06/28/22 05:41 MCHC 34.9 g/dL (32.0-36.0) 06/28/22 05:41 RDW Std Deviation 40.4 fL (36.4-46.3) 06/28/22 05:41 RDW Coeff of Yousuf 12.0 % (11.5-14.5) 06/28/22 05:41 Plt Count 214 K/uL (130-400) 06/28/22 05:41 MPV 10.1 fL (9.4-12.4) 06/28/22 05:41 Immature Gran % (Auto) 0.3 % 06/25/22 11:50 Neut % (Auto) 67.9 % 06/25/22 11:50 Lymph % (Auto) 16.3 % 06/25/22 11:50 [place] % (Auto) 14.8 % 06/25/22 11:50 Eos % (Auto) 0.3 % 06/25/22 11:50 Baso % (Auto) 0.4 % 06/25/22 11:50 Neut # (Auto) 4.79 K/uL (1.4-6.5) 06/25/22 11:50 Lymph # (Auto) 1.15 K/uL (1.2-3.4) L 06/25/22 11:50 [place] # (Auto) 1.04 K/uL (0.24-0.82) H 06/25/22 11:50 Eos # (Auto) 0.02 K/uL (0-0.50) 06/25/22 11:50 Baso # (Auto) 0.03 K/uL (0-0.2) 06/25/22 11:50 Immature Gran # (Auto) 0.02 K/uL (0.00-0.02) 06/25/22 11:50 Sodium 134 mmol/L (136-145) L 06/28/22 05:41 Potassium 4.1 mmol/L (3.5-5.1) 06/28/22 05:41 Chloride 102 mmol/L (98-107) 06/28/22 05:41 Carbon Dioxide 24 mmol/L (21-32) 06/28/22 05:41 Anion Gap 8 (3-11) 06/28/22 05:41 BUN 28 mg/dl (6-23) H 06/28/22 05:41 Creatinine 0.91 mg/dl (0.6-1.4) 06/28/22 05:41 Est Cr Clr Drug Dosing 75.0 ml/min 06/28/22 05:41 Est GFR ( Amer) 91.9 ml/min 06/28/22 05:41 Est GFR (Non-Af Amer) 79.3 ml/min 06/28/22 05:41 BUN/Creatinine Ratio 30.8 (10-20) H 06/28/22 05:41 Glucose 143 mg/dl (70-99(Fasting)) H 06/28/22 05:41 Calcium 8.5 mg/dl (8.5-10.1) 06/28/22 05:41 Phosphorus 3.5 mg/dl (2.5-4.9) 06/25/22 11:50 Magnesium 1.9 mg/dl (1.7-2.4) 06/28/22 05:41 Total Bilirubin 0.9 mg/dl (0.2-1.0) 06/25/22 11:50 AST 124 U/L (13-39) H 06/25/22 11:50 ALT 63 U/L (7-52) H 06/25/22 11:50 Alkaline Phosphatase 81 U/L (34-104) 06/25/22 11:50 Troponin I High Sens 18.8 pg/ml (0-20) 06/26/22 04:32 B-Natriuretic Peptide 16 pg/ml (0-100) 06/25/22 12:29 Total Protein 8.5 gm/dl (6.0-8.3) H 06/25/22 11:50 Albumin 4.7 gm/dl (3.4-5.0) 06/25/22 11:50 Globulin 3.8 gm/dl (2.5-4.0) 06/25/22 11:50 Albumin/Globulin Ratio 1.2 (0.9-2) 06/25/22 11:50 Lipase 21 U/L (11-82) 06/25/22 11:50 Procalcitonin < 0.05 ng/ml (0-0.5) 06/25/22 11:50 SARS-CoV-2 (PCR) NEGATIVE (Negative) 06/25/22 12:09 Influenza Type A (PCR) Positive (Neg) A* 06/25/22 12:09 Influenza Type B (PCR) Negative (Neg) 06/25/22 12:09 RSV (RT-PCR) Negative (Neg) 06/25/22 12:09 Impressions Chest CTA 06/25/22 13:14 CT ANGIOGRAM OF THE CHEST CLINICAL HISTORY: Hypoxia. Dyspnea COMPARISON STUDY: Chest CT dated 09/17/2010. TECHNIQUE: Following the IV administration of 170 cc of Optiray 320, CT angiogram of the chest was performed from the upper abdomen to the thoracic inlet utilizing the pulmonary embolus protocol. Images are reviewed in the axial, sagittal, and coronal planes. 3-D MIPS images are created and assessed. IV contrast was administered without complication. A dose lowering technique was utilized adhering to the principles of ALARA. The examination is significantly degraded by motion artifact. CT DOSE: 606.64 mGycm FINDINGS: Thyroid: Imaged portions of the thyroid gland are normal in size and attenuation. Thoracic aorta: The thoracic aorta is normal in caliber and demonstrates standard 3-vessel arch anatomy. No dissection is seen. Pulmonary vasculature: The pulmonary trunk is normal in caliber. There are no filling defects identified in main, lobar, or proximal segmental pulmonary branches to suggest pulmonary embolus. Evaluation of the segmental and subsegmental branches is degraded by motion artifact. Heart: The heart is enlarged and without pericardial effusion. The coronary arteries are densely calcified. Lungs and pleural spaces: Evaluation of the lung parenchyma is severely degraded by motion artifact. There is evidence of chronic interstitial lung disease, which has progressed as compared to 09/17/2010. There is subpleural reticulation throughout both lungs with extensive subpleural parenchymal scarring and fibrosis. No honeycombing is seen. Dependent airspace opacities likely represent atelectasis. No pleural effusion is identified. The trachea and central airways are clear. A 4 mm pleural-based nodule in the left upper lobe seen on image #146. Mediastinum: There is no mediastinal lymphadenopathy. Amanda: Mildly enlarged hilar nodes measure up to 13 mm short axis. Axillae: There is no axillary lymphadenopathy. Upper abdomen: There is a tiny hiatal hernia. The liver is too tight. Cholecystectomy clips are noted. Skeletal structures: The skeletal structures are osteopenic. Spondylotic change is seen throughout the spine. Arthritic change is noted in the shoulders. No lytic or blastic bony lesions are seen. IMPRESSION: 1. Significantly motion compromised examination. 2. There is no evidence of central pulmonary embolus in the main, lobar, or proximal segmental pulmonary arteries. Evaluation of the segmental and subsegmental vessels is significantly degraded by motion artifact. 3. Cardiomegaly with changes of chronic interstitial lung disease. This has progressed as compared to 2011. Nonemergent pulmonology follow-up is recommended. 4. Dependent airspace opacities likely represent scarring/atelectasis. Correlate clinically for evidence of a superimposed infectious/inflammatory pneumonitis. 5. Mildly enlarged hilar nodes are nonspecific. 6. Hepatic steatosis. 7. Additional findings as above. ACT 112: Negative or not required by law. Electronically signed by: Frankie Livingston M.D. 06/25/2022 3:02 PM Chest X-Ray 06/28/22 07:00 TWO VIEW CHEST CLINICAL HISTORY: Hypoxia. Leukocytosis. FINDINGS: PA and lateral chest radiographs are compared to chest x-ray and chest CT dated 06/25/2022. The heart is enlarged noting atherosclerotic calcification of the thoracic aorta. The pulmonary vasculature is noncongested. Emphysema and chronic interstitial thickening similar to previous. There is likely superimposed chronic interstitial lung disease. Scarring/atelectasis is noted at the lung bases. No airspace consolidation or pleural effusion is identified. There is no pneumothorax. The skeletal structures are osteopenic. The bony thorax appears intact. Degenerative change is noted in the thoracic spine. Cholecystectomy clips are seen in the upper abdomen. IMPRESSION: Cardiomegaly and chronic pulmonary parenchymal changes as above with no acute cardiopulmonary abnormality identified. ACT 112: Negative or not required by law. Electronically signed by: Frankie Livingston M.D. 06/28/2022 9:44 AM Hospital Course (1) Acute respiratory failure with hypoxia: Acute respiratory failure with hypoxia: Patient presents with respiratory failure with accessory muscle use and tachypnea. He is found to be influenza A positive in the emergency department. There is dependent airspace opacities seen on CT scan suspicious for superimposed infectious or inflammatory pneumonitis. - Currently on room air with SPO2 in the mid 90s - Leukocytosis to 16, likely reactive secondary to steroids -> down to 14 on the morning of d/c - Was given Solu-medrol and then transitioned to prednisone; will d/c on prednisone taper; 40x2 days, 20x2 days - Was treated with Tamiflu; will send prescription to complete 5 day course - CXR on day of d/c without signs of acute pneumonia and oxygenation had significantly improved. - Was elevated by PT who feel he is at his baseline Electrolyte abnormality: Repleted potassium and magnesium in ED and then remained normal with rest of hospitalization - F/u BMP with PCP Hypertension: Patient's blood pressures were a little low, so losartan and amlodipine held - Will d/c on losartan and hold amlodipine until PCP f/u Depression: Patient continues on citalopram Chronic Wound - chronic wound on abdomen that he has been following with wound care for - due for f/u (2) Influenza and pneumonia: (3) Electrolyte abnormality: (4) Hypertension: (5) Depression: Total Time Total Time Spent Total Time Spent (In Minutes): 30 minutes spent seeing patient, reviewing lab test and imaging, and documenting Discharge Plan Discharge Items Patient Disposition: Home - Self-Care Reason For Visit: ACUTE RESPIRATORY FAILURE FROM INFLUENZA PNEUMONIA Discharge Diagnosis: Influenza Activity: Resume your previous activity Non-emergency contact: Primary Care Provider Call non-emergency contact if: you have any medication questions, your symptoms worsen and your temperature is above 101 Follow-up/Referrals: Emperatriz Chase PA-C [Physician [employer]] - [facility] [Primary Care Provider] - Diet: Regular Addtl Attending Provider Instructions: You were admitted to the hospital for with the flu. You initially required a little extra oxygen, but this improved with steroids and Tamiflu. We will send a prescription to your pharmacy for 3 more days of Tamiflu. You should take it twice a day for the next 3 days. We also sent a prescription to your pharmacy for steroids (prednisone). You should take 40mg (2 20mg tablets) for the next 2 days and then 20mg (1 20mg tablet) for the following 2 days. Your blood pressure was well controlled in the hospital without any of your blood pressure medications. Because of this we are concerned that if you continue to take both blood pressure medications at home, your blood pressure may become low. Continue to take the 50mg losartan, but hold off on take the 5mg amlodipine until you are able to follow up with your PCP and they will decide what to do with the medications moving forward. A discharge summary will be sent to your primary care physician to ensure continuity of care. Please bring this discharge summary with you to your next office appointment so that your provider can review it at that time. Follow-up appointments: We have requested a follow-up appointment with your primary care physician within one week of discharge. Please call their office if you do not hear from [facility]. CONTACT YOUR PRIMARY CARE PROVIDER if you experience any of the following: You have increased shortness of breath You feel lightheaded/dizzy Difficulty following your treatment plan, or difficulty taking medications CALL 911 OR GO TO THE EMERGENCY DEPARTMENT if you experience any of the following: Sudden, severe abdominal pain or nausea/vomiting Severe chest pain, or chest pain that radiates (moves) to your jaw or arm Sudden, severe shortness of breath or difficulty breathing Thank you for allowing us to participate in your care. Pending Studies at Discharge: No Stand-Alone Forms: My [facility], Smoking Cessation Medications and DC Order Prescriptions: New prednisone 20 mg Tablet 40 mg PO QAM 4 Days Qty: 6 0RF Rx Instructions: Please take 40mg for the next 2 days (2 20mg tabs) and 20mg for the following 2 days (1 20mg tab) oseltamivir [Tamiflu] 75 mg Capsule 75 mg PO BID 3 Days Qty: 6 0RF Continued atorvastatin 20 mg tablet 20 mg PO QAM citalopram 10 mg tablet 5 mg PO QAM Rx Instructions: 5 mg PO daily; losartan 50 mg tablet 50 mg PO QAM pantoprazole 40 mg tablet,delayed release (DR/EC) 40 mg PO QAM cholecalciferol (vitamin D3) 25 mcg (1,000 unit) capsule 25 mcg PO QAM cyanocobalamin (vitamin B-12) 1,000 mcg capsule 1,000 mcg PO QAM glucosamine sulfate 2KCl [Glucosamine Relief] 1,000 mg tablet 1,000 mg PO QAM Rx Instructions: administer with meals diphenhydramine HCl [Allergy (diphenhydramine)] 25 mg capsule 25 mg PO HS PRN (Reason: Sleep) ascorbate calcium (vitamin C) 500 mg tablet 500 mg PO QAM Discontinued amlodipine 5 mg tablet 5 mg PO QAM ibuprofen [Advil] 200 mg tablet 600 mg PO Q6H PRN (Reason: Pain) Discharge Orders: Discharge Order (Routine); Ordered 06/28/22 Ordered By: Tanja Back Admission Data Admit Date/Time: 06/25/22 15:38 Attending Provider: Blade Brown Admit Provider: Altaf Zhang Primary Care Provider: [facility] Other Providers: Altaf Zhang Other Interventions: Discharge Summary Assessment (RN) Last Done: 06/28/22 15:28 Supervising Physician Co-Signing Physician Notes Attending Attestation I also saw the patient confirmed haas portions of the history and physical examination. Agree with impression plan as noted in the resident documentation. Feels well today. No complaints. Exam 129/75, 55, 17, 36.6, 93% on room air Heart regular rate and rhythm Lungs clear with nonlabored respirations Abdomen soft nontender Data White blood cell count 14.7, hemoglobin 11.7 Sodium 134, testing 4.1, BUN 20, creatinine 0.91 Imaging Chest x-ray shows no acute pulmonary findings Acute hypoxic respiratory failure in the setting of influenza A Continues to do well, no oxygen requirement, afebrile PT evaluation appreciated; okay for home discharge, and he will likely do better in this regards with respect to his dementia We will taper his prednisone rather quickly since he is having little in the way of bronchospasm, and do not want to exacerbate his dementia Complete course of Tamiflu Additional per resident documentation Resident Activity Tracking Resident Involvement: Resident Care Provided Care Provided: Adult Hospital Medicine
== END 2022-06-28 16:16 | disposition home or self-care (01) | DRG 193 ==
LOC: ED 11:28 → SUATTDRO 15:38 → EDINP 15:38 → 4W 06-26 16:42